=== PATIENT | female | born 1960 | race Caucasian/White ===

== ENCOUNTER 2022-05-15 09:34 | Outpatient (REF) | payer BC, SELFPAY ==
--- NOTE | 2022-05-15 08:45 | SKI_PTH ---
PATIENT: Keesha Blanca LOC: [facility] U#:[id number] AGE/SX: 62/F ROOM: RE05/15/[address]: KATHRYN Morris : 1960 BED: DIS: 05/15/2022 SPEC #: [id number] RECD: 05/15/22 13:39 STATUS: ADRIÁN REQ #: [id number] SUNITA: 05/15/22 08:[address]: Rolando Michael DEPT: Surgical Specimen RECD BY: Rae Boo ENTERED: 05/15/22 13:40 SP TYPE: FOUZIA CEJA DR: No Local Tissues: 1 - SKIN BIOPSY(SHAVE/PUNCH) 2 - SKIN BIOPSY(SHAVE/PUNCH) Procedures: SKIN LEVEL 4 Comments: [id number]
--- OUTSIDE RECORDS SUMMARY | 2022-05-15 09:36 | XMS_ITS ---
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 079992291 ALLERGIES Substance Reaction Event Type Date Status Morphine Unknown Drug Allergy Apr, Active Cortisone Unknown Drug Allergy Apr, Active ENCOUNTERS Encounter Location Date Diagnosis [facility] [address], [address] [place], [place] [id number] Apr, Non-healing skin lesion L98.9 ; Neoplasm of unspecified behavior of bone, soft tissue, and skin D49.2 ; Rhinorrhea J34.89 and Other complicated headache syndrome G44.59 [facility] [address] [place], [place] [id number] Feb, [facility] [address] [place], [place] [id number] Dec, Neoplasm of unspecified behavior of bone, soft tissue, and skin D49.2 and Dysphonia R49.0 [facility] [address] [place], [place] [id number] Jan, Low back pain, unspecified M54.50 IMMUNIZATIONS No Known Immunizations SOCIAL HISTORY Never Assessed REASON FOR REFERRAL FUNCTIONAL STATUS PLAN OF CARE Activity Details VITAL SIGNS Height 66 in 2022-05-15 Height 66 in 2022-01-02 Height 66 in 2021-02-05 Weight 135 lbs 2022-05-15 Weight 132 lbs 2022-01-02 Weight 130 lbs 2021-02-05 Temperature 97.3 degrees Fahrenheit Heart Rate 56 /min 2022-05-15 Heart Rate 82 /min 2022-01-02 Heart Rate 80 /min 2021-02-05 Oximetry 98 2022-05-15 Oximetry 100 2022-01-02 Oximetry 100 2021-02-05 Respiratory Rate 14 /min 2021-02-05 BMI 21.79 kg/m2 2022-05-15 BMI 21.30 kg/m2 2022-01-02 BMI 20.98 kg/m2 2021-02-05 Blood pressure systolic 124 mm Hg Blood pressure diastolic 70 mm Hg 2022-04 MEDICATIONS Medication Instructions Dosage Frequency Start Date End Date Duration Status metFORMIN HCl 500 MG Orally Once a day 1 tablet with a meal 24h 30 day(s) Not-Taki ng Ipratropium [place] 0.06 % Nasally Three times a day 2 sprays in each nostril 8h 4 day(s) Not-Taki ng Nasal [place] Triamcinolone Acetonide 0.1 % Externally Two times a Week 1 application Not-Taki ng PROCEDURES Procedure Date Ordered Result Body Site [facility] - X-RAY EXAM LUMBOSACRAL; 2 OR 3 VIEWS Feb 05 SHAVE FACE <.5 CM May 15, 2022 [facility] - URINALYSIS NONAUTO W/O SCOPE Feb 05, 2021 SHAVE FACE .6 - 1.0 CM May 15, 2022 DIAGNOSTIC FLEXIBLE LARYNGOSCOPY Jan 02, 2022 RESULTS Name Result Date Reference Range [facility] URINALYSIS DIP 2021-02-05 CLARITY CLEAR COLOR YELLOW NITRITES NEG REDUCING SUBSTANCES SPECIFIC GRAVITY 1.005 UROBILINOGEN NEG BILIRUBIN NEG BLOOD NEG GLUCOSE NEG KETONES NEG pH 5 PROTEIN NEG LEUKOCYTES NEG [facility] XR LUMBAR SPINE 2 VIEWS 2021-02-05 REASON FOR VISIT ENT Skin Lesion, Ear complaints, Cream not helping, ENT Ear Pain, ENT- skin lesion on ear, ENT- Skin lesion on ear, pfp New Consult, PFP Shave Excision, she thinks might be kidney problems? Insurance Providers Health Insurance Type Health Plan Insurance Address Health Plan Insurance Phone Health Plan Insurance Name Health Plan Coverage Dates Member ID Patient Relationship to Subscriber Patient Address Patient Phone Patient Name Patient Date of Subscriber ID Subscriber Name Subscriber Date of Group No BCBS OUT OF AREA [address] ATTN CLAIMS [facility] [id number] BCBS OUT OF AREA self Keesha Evangelist [id number] [id number]
== END 2022-05-15 09:35 | disposition home or self-care (01) ==
LOC: LBN 09:34
PROVIDERS: Visit Provider Physician Assistant
DX: C44.319 Basal cell carcinoma of skin of other parts of face (principal); L85.1 Acquired keratosis [keratoderma] palmaris et plantaris
CPT/HCPCS: 88305

== ENCOUNTER 2022-07-02 13:29 | Outpatient (REF) | payer BC, SELFPAY ==
[2022-07-02 14:57] LABS: Abs Immature Grans 0.01 10^3/uL (0.0-0.06); Absolute Basophil Count 0.03 10^3/uL (0.0-0.2); Absolute Eosinophil Count 0.04 10^3/uL (0.0-0.7); Absolute Monocyte Count 0.34 10^3/uL (0.1-0.8); Absolute Neutrophil Count 3.37 10^3/uL (1.2-6.7); Basophils % 0.6; Eosinophils % 0.8; HCT 39.2 % (36.0-46.0); HGB 13.1 g/dL (11.2-15.7); Immature Grans % 0.2; Lymphocytes % 25.5; MCH 27.4 pg (27.0-33.0); MCHC 33.4 % (32.0-36.0); MCV 82 fL (80-95); MPV 9.8 fL (8.0-11.0); Monocytes % 6.7; Neutrophils % 66.2; Platelet Count 199 10^3/uL (130-400); RBC 4.78 10^6/uL (3.93-5.22); RDW 12.6 % (11.7-14.6); WBC 5.09 10^3/uL (4.4-10.8)
[2022-07-02 15:07] LABS: ALT 27 U/L (14-59); AST 25 U/L (15-37); Alkaline Phosphatase 66 U/L (46-116); Anion Gap 5.7 mmol/L (3-11); BUN 16 mg/dL (7-18); CO2 31.3 mmol/L (21.0-32.0); CREATININE 0.7 mg/dL (0.55-1.02); Calcium 9.3 mg/dL (8.5-10.1); Calculated LDL 95 mg/dL (<100); Chloride 106 mmol/L (98-107); Cholesterol 194 mg/dL (<200); Estimated GFR 97.12 (mL/min/1.73m2); Glucose 92 mg/dL (74-106); HDL Cholesterol 89 mg/dL (40-60); Potassium 4.4 mmol/L (3.5-5.1); Sodium 143 mmol/L (136-145); TSH (W/Ref FT4) 0.95 uIU/mL (0.36-3.74); Total Protein 7.1 g/dL (6.4-8.2); Triglyceride 53 mg/dL (<150)
== END 2022-07-02 13:30 | disposition home or self-care (01) ==
LOC: NCHCN 13:29
PROVIDERS: Visit Provider Nurse Practitioner Family
DX: G47.00 Insomnia, unspecified (principal); Z13.220 Encounter for screening for lipoid disorders
CPT/HCPCS: 80053; 80061; 84443; 85025

== ENCOUNTER 2022-07-28 09:31 | Outpatient (CLI) | payer BC, SELFPAY | END 2022-07-28 09:32 | disposition home or self-care (01) | PROVIDERS: Visit Provider Nurse Practitioner Family | DX: I47.0 Re-entry ventricular arrhythmia (principal) | CPT/HCPCS: 93246 ==

== ENCOUNTER 2022-08-28 11:10 | Outpatient (CLI) | payer BC, SELFPAY ==
--- NOTE | 2022-08-28 12:12 | W.CARDEVENT ---
Date of service: 08/28/22 Time of Service: 12:12 Cardiac Event Recorder Referring Provider:: Val Bautista Indications:: Supraventricular tachycardia Cardiac Event Note: This is a 14-day cardiac event monitor ordered patient with ventricular tachycardia Rhythm throughout was sinus. Average heart rate was 76. Minimum was 43, maximum 141 There were rare ventricular ectopic beats There were occasional atrial premature beats A total of 11 self-limited atrial runs occurred. The longest of these was 7 beats in duration There was no atrial fibrillation, no high-grade AV block, no pauses greater than 3 seconds Patient's symptoms were reported which did not correlate with any dysrhythmia
== END 2022-08-28 11:11 | disposition home or self-care (01) ==
LOC: CARDOPNVT 11:10
PROVIDERS: PCP Nurse Practitioner Family; Visit Provider Internal Medicine Cardiovascular Disease
DX: I47.1 Supraventricular tachycardia (principal); I49.1 Atrial premature depolarization

== ENCOUNTER 2023-10-15 12:53 | Emergency (ER) | payer BC, SELFPAY ==
[2023-10-15] VITALS (49 sets, daily range): BP systolic 106–155; BP diastolic 60–101; PULSE 57–91; RESP 14–27; TEMP 36.4; O2SAT 97–99
--- NOTE | 2023-10-15 12:45 | RT.EKG_ITS ---
APPROVED REPORT Exam: Resting ECG Reason for Exam: AFIB, loss of vision Patient Location: E HR:76 bpm ECG Measurements Heart Rate 76 AXIS IN 140 P 8 QRSd 81 QRS 25 QT 373 T 12 QTc 417 Conclusion Sinus rhythm...normal P axis, V-rate 60- 99
--- OUTSIDE RECORDS SUMMARY | 2023-10-15 13:13 | XMS_ITS | Encounter Summary ---
[place] [address] Care Team Providers Care Structural Design Engineer Name Role Phone Juan Carlos Maldonado MD Primary Care Provider [phone] Reason for Referral * Consultation (Routine) - Closed Specialty Diagnoses / Procedures Referred By Contac t Referred To Contact Plastic Surgery Diagnoses S/P silicone breast implant Val Bautista APRN [address] [place] [address] [facility] [address] [place] [phone] Referral ID Status Reason Start Date Expiration Date V isits Requested Visits Authorized [id number] Closed Consult, Test & Treat PCP Updated and/or Approved 01/11/2023 01/11/2024 12 12 Encounter Details Date Type Department Care Team (Latest Contact Info) Description 01/11/2023 Transcribe Orders eDH Incoming Referrals [phone] Val Bautista APRN [address] [place] [address] S/P silicone breast implant Social History Tobacco Use Types Packs/Day Years Used Date Smoking Tobacco: Never Assessed Sex and Gender Information Value Date Recorded Sex Assigned at Not on file Gender Identity Not on file Sexual Orientation Not on file documented as of this encounter Plan of Treatment Scheduled Referrals Name Type Priority Associated Diagnoses Orde r Schedule Referral to Plastic Surgery Outpatient Referral Routine S/P silicone breast implant Ordered: 01/11/2023 documented as of this encounter Visit Diagnoses Diagnosis S/P silicone breast implant Breast replaced by other means documented in this encounter Care Teams Structural Design Engineer Relationship Specialty Start Date End Date Juan Carlos Maldonado MD [address] [place] [address] PCP - General Family Medicine 11/20/16 documented as of this encounter
--- OUTSIDE RECORDS SUMMARY | 2023-10-15 13:13 | XMS_ITS | Encounter Summary ---
Author Organization [facility] Address [address] [place] [address] Care Team Providers Care Dental Treatment Coordinator Name Role Phone Unknown, Provider MD Primary Care Provider [phone] None, Provider Primary Care Provider Unavailabl e Unknown, Provider MD Unavailable [phone] Encounter Details Date Type Department Care Team (Late st Contact Info) Description 08/21/2022 Lab Requisition [facility] [place] [address] [place] [address] Prashant Aldridge, [address] [place], [place] [address] Basal cell carcinoma of skin, unspecified Social History Tobacco Use Types Packs/Day Years Used Date Smoking Tobacco: Never Assessed Sex and Gender Information Value Date Recorded Sex Assigned at Not on file Gender Identity Not on file Sexual Orientation Not on file documented as of this encounter Plan of Treatment Not on file documented as of this encounter Procedures Procedure Name Priority Date/Time Associated Diagnosis Comments SURGICAL PATHOLOGY Today 08/20/2022 9: 20 EDT Basal cell carcinoma of skin, unspecified documented in this encounter Results * SURGICAL PATHOLOGY (08/20/2022 9:20 EDT) Note to Patient The following pathology results have been interpreted by your pathologist and may be available to you before your health provider has had the opportunity to review them. Please allow time for your provider to receive these results and explore management options, if applicable. 08/25/2022 15:18 EDT [facility] Final Diagnosis A. SKIN OF CHEEK, LEFT, EXCISION FOR FROZEN SECTION: - Residual basal cell carcinoma, nodular type; peripheral and deep margins negative. See comment. - Epidermal reparative change and dermal scar, consistent with prior biopsy site. - Background dermal solar elastosis. 08/25/2022 15:18 [facility] Diagnosis Comment Correlation is made with the prior biopsy ([id number]). 08/25/2022 15:18 [facility] Attestation By the signature below, the attending physician certifies that they have 1) personally conducted a gross and/or microscopic examination of the described specimen(s), and/or personally interpreted the results of laboratory testing of the described specimen(s), and 2) personally rendered or confirmed the above diagnosis. 08/25/2022 15:18 [facility] at 1518 Intraoperative Consultation A. SKIN OF CHEEK, LEFT, FROZEN SECTION: -FSA1: 12 o'clock and 6 o'clock tips en face (levels 1+6): Tips uninvolved by tumor. -FSA2: Levels 2, 3: Margins uninvolved by tumor. -FSA3: Levels 4, 5: Margins uninvolved by tumor. Frozen section diagnosis communicated to Rolando Michael on 08/20/2022 at 9:[address] Ru Jacob 08/20/22 (Frozen section performed and evaluated at [facility]) 08/25/2022 15:18 [facility] Clinical History left cheek BCC 07/29 15:18 [facility] Gross Description A. Received fresh labeled Keesha Blanca and ? Left cheek frozen section? is an elliptical excision of bonner skin with the following attached orienting sutures: white = 3 o'clock, blue = 6 o'clock, black = 9 o'clock; measuring 1.7 cm 12-6 o'clock x 0.7 cm 9-3 o'clock and excised to a depth of 0.4 cm. The 12-3-6 o'clock margin is inked blue, the 6-9-12 o'clock margin green. The specimen is serially sectioned from 12 o'clock to 6 o'clock and submitted as FSA1 through FSA3 for frozen section with the interpretation as rendered above. BLOCK PALOMINO: A1: 12 o'clock tip, en face, portion of FSA1 control. A2-A5: Consecutive central sections, FSA2 and FSA3 controls. A6: 6 o'clock tip, en face, portion of FSA1 control. 08/25/2022 15:18 EDT [facility] Performing Lab [facility] 08/25/2022 15:18 EDT [facility] Scanned Images 08/25/2022 15:18 EDT [facility] Tissue SPECIMEN FROM SKIN / Unknown 08/20/2022 9:20 EDT 08/21/2022 9:33 EDT Prashant Aldridge DO PATHOLOGY ORDER WANDA [facility] [address] [place] [address] documented in this encounter Visit Diagnoses Diagnosis Basal cell carcinoma of skin, unspecified documented in this encounter Care Teams Dental Treatment Coordinator Relationship Specialty Start Date End Date Unknown, ProviderMD PCP - General 04/29/22 11/23/22 None, Provider PCP - General 11/24/22 Unknown, ProviderMD 11/24/22 documented as of this encounter
--- OUTSIDE RECORDS SUMMARY | 2023-10-15 13:13 | XMS_ITS | Clinical Summary ---
Author Organization [facility] [place] [address] Care Team Providers Care Enrollment Clerk Name Role Phone Juan Carlos Maldonado MD Primary Care Provider Allergies Active Allergy Reactions Criticality Noted Date Comments Erythromycin Base Low CIS - Nausea/Vomiting Medications Medication Sig Dispensed Refills Start Date End Date Status ibuprofen (ADVIL) 200 mg tablet 01/08/2009 Active Social History Tobacco Use Types Packs/Day Years Used Date Smoking Tobacco: Never Assessed Sex and Gender Information Value Date Recorded Sex Assigned at Not on file Gender Identity Not on file Sexual Orientation Not on file Plan of Treatment Health Maintenance Due Date Last Done Comments CT Colonography 1959 Colonoscopy 1960 Colorectal Cancer Screening 1960 FIT DNA 1959 FIT 1960 Sigmoidoscopy (10 year) with FIT yearly 1960 Sigmoidoscopy 1960 HIV screen 1977 Hepatitis C Screening 1977 Tdap adult 1978 Tetanus vaccine 1978 HPV test 1989 PAP Smear 1989 Breast Cancer Share Decision Needed 1999 Breast Cancer screening 1999 Zoster vaccine (1 of 2) 2009 Advance Directive 2014 Covid-19 Vaccine (2022- season) 2022 Influenza (Flu) vaccine (1 o f 1 - Influenza standard series) 11/28/2023 Care Teams Enrollment Clerk Relationship Specialty Start Date End Date Juan Carlos Maldonado MD [address] [place] [address] PCP - General Family Medicine 11/20/16
--- OUTSIDE RECORDS SUMMARY | 2023-10-15 13:13 | XMS_ITS | Encounter Summary ---
Author Organization [facility] Address [address] [facility] [place] [address] Care Team Providers Care Student Truck Driver Name Role Phone Juan Carlos Maldonado MD Primary Care Provider Encounter Details Date Type Department Care Team (Late st Contact Info) Description 02/05/2010 Interpretation Only Radiology 1 [facility] TONJA Sam [phone] Unknown None Social History Tobacco Use Types Packs/Day Years Used Date Smoking Tobacco: Never Assessed Sex and Gender Information Value Date Recorded Sex Assigned at Not on file Gender Identity Not on file Sexual Orientation Not on file documented as of this encounter Plan of Treatment Not on file documented as of this encounter Procedures Procedure Name Priority Date/Time Associated Diagnosis Comments XR HAND MIN 3 VIEWS RIGHT Routine 02/05/2010 3:06 PM EST documented in this encounter Results * XR Hand Min 3 views Right (Generic) (02/05/2010 3:06 PM EST) Anatomical Region Laterality Modality Hand Right Radiographic Sheryl ging 02/05/2010 3:06 PM EST Narrative 02/05/2010 3:06 PM EST APD Historical Result Principal Senior Php Software Developer: ??VERO ??ARUNA RIGHT HAND - THREE VIEWS: Three views of the right hand are obtained for pain post trauma. No prior study for comparison. There is alteration in the carpus, with apparent resection of the trapezium. ??Alternatively, a portion of the trapezium may be fused to the base of the 1st metacarpal. ??There is degenerative disease in the lateral aspect of the carpus. ??There is degenerative disease also noted involving the proximal interphalangeal joints and the 3rd metacarpophalangeal joint, with marginal osteophytic spurring and joint space narrowing. ??There is no suggestion of acute bony trauma or bone destructive lesion. ??Lesser degeneration disease is seen elsewhere. There is no suggestion of acute bony trauma or bone destructive lesion. IMPRESSION: (1) Postoperative changes involving the lateral aspect of the carpus. ??(2) Degenerative change of the remainder of the hand. Vero Valdovinos MD KG/ma [id number] CC: Procedure Note Unknown - 09/26/2018 APD Historical Result Principal Senior Php Software Developer: VERO VALDOVINOS RIGHT HAND - THREE VIEWS: Three views of the right hand are obtained for pain post trauma. No prior study for comparison. There is alteration in the carpus, with apparent resection of thetrapezium. Alternatively, a portion of the trapezium may be fused to the base of the 1st metacarpal.There is degenerative disease in the lateral aspect of the carpus. There is degenerative disease alsonoted involving the proximal interphalangeal joints and the 3rd metacarpophalangeal joint,with marginal osteophytic spurring and joint space narrowing. There is no suggestion of acute bony trauma orbone destructive lesion. Lesser degeneration disease is seen elsewhere. There is nosuggestion of acute bony trauma or bone destructive lesion. IMPRESSION: (1) Postoperative changes involving the lateral aspect of thecarpus. (2) Degenerative change of the remainder of the hand. Vero Valdovinos MD KG/ma [id number] CC: Unknown IMG DX ORDERABLES documented in this encounter Visit Diagnoses Not on filedocumented in this encounter Care Teams Student Truck Driver Relationship Specialty Start Date End Date Juan Carlos Maldonado MD [address] [place] [id number] PCP - General Family Medicine 11/20/16 documented as of this encounter
--- OUTSIDE RECORDS SUMMARY | 2023-10-15 13:13 | XMS_ITS | Referral Summary ---
Author Organization [facility] Address [address] [place] [address] Care Team Providers Care Assistant Professor Of Criminal Justice Name Role Phone None, Provider Primary Care Provider Unavailabl e Unknown, Provider Unavailable [phone] Social History Tobacco Use Types Packs/Day Years Used Date Smoking Tobacco: Never Assessed Sex and Gender Information Value Date Recorded Sex Assigned at Not on file Gender Identity Not on file Sexual Orientation Not on file Plan of Treatment Not on file Insurance Payer Benefit Plan / Group Subscriber ID Effective Dates Phone Address Type [facility] [id number] 2020-Present [address] [place] [address] Other GL Care Teams Assistant Professor Of Criminal Justice Relationship Specialty Start Date End Date None, Provider PCP - General 11/24/22 Unknown, Provider, 11/24/22
--- OUTSIDE RECORDS SUMMARY | 2023-10-15 13:13 | XMS_ITS | Encounter Summary ---
Author Organization [facility] Address [address] [place] [address] Care Team Providers Care Community Support Associate Name Role Phone Unknown, Provider MD Primary Care Provider None, Provider Primary Care Provider Unavailabl e Unknown, Provider MD Unavailable [phone] Encounter Details Date Type Department Care Team (Late st Contact Info) Description 05/15/2022 Lab Requisition [facility] Medicine - [address] [address] Rolando Michael, [address] [phone] Neoplasm of unspecified behavior of bone, soft tissue, and skin Social History Tobacco Use Types Packs/Day Years Used Date Smoking Tobacco: Never Assessed Sex and Gender Information Value Date Recorded Sex Assigned at Not on file Gender Identity Not on file Sexual Orientation Not on file documented as of this encounter Plan of Treatment Not on file documented as of this encounter Procedures Procedure Name Priority Date/Time Associated Diagnosis Comments SURGICAL PATHOLOGY Today 05/15/2022 8: 45 EST Neoplasm of unspecified behavior of bone, soft tissue, and skin documented in this encounter Results * SURGICAL PATHOLOGY (05/15/2022 8:45 EST) Note to Patient The following pathology results have been interpreted by your pathologist and may be available to you before your health provider has had the opportunity to review them. Please allow time for your provider to receive these results and explore management options, if applicable. 05/19/2022 13:22 EST [facility] Final Diagnosis A. SKIN OF HELIX, LEFT MID, SHAVE BIOPSY: - Reactive epidermal hyperplasia with hyperkeratosis and parakeratosis. See comment. B. SKIN OF CHEEK, LEFT, SHAVE BIOPSY: - Basal cell carcinoma, nodular type (pigmented). - Basal cell carcinoma present at deep tissue edge. 05/19/2022 13:22 [facility] Diagnosis Comment Numerous sections of the biopsy from ? left helix? (A) were reviewed. 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 There is no evidence of malignancy on either the original or additional deeper sections. 05/19/2022 13:22 [facility] Attestation By the signature below, the attending physician certifies that they have 1) personally conducted a gross and/or microscopic examination of the described specimen(s), and/or personally interpreted the results of laboratory testing of the described specimen(s), and 2) personally rendered or confirmed the above diagnosis. 05/19/2022 13:22 [facility] at 1322 Microscopic Description A. Sections consist of a shave biopsy of skin that transects the epidermis and superficial dermis. The epidermis is moderately acanthotic with overlying compact hyperkeratosis and focal parakeratosis. There is mild dilatation follicular ostia. The dermis has mild elastosis and vascular ectasia. Multiple deeper sections have similar features. B. There are buds of atypical basal cells emanating from the epidermis and forming islands within the dermis. The basal cells have dark nuclei and scant cytoplasm. The nuclei at the periphery of the buds and islands are arranged in a palisaded fashion. Some the islands and buds are associated with melanin pigment within individual melanocytes and melanophages. The islands are from the adjacent fibromyxoid stroma by clefts. 05/19/2022 13:22 [facility] Clinical History A. Bleeding skin neoplasm; B. Ulcerated skin lesion; clinical diagnosis code: D49.2 05/19/2022 13:22 [facility] Gross Description A. Received in formalin labelled with proper patient identification (initials W, L) and L helix is an irregular pale-bonner skin shave, 0.6 x 0.5 x 0.1 cm. The margin is inked. Bisected and entirely submitted in A1. B. Received in formalin labelled with proper patient identification (initials W, L) and L cheek is an irregular mottled sanderson-brown skin shave, 0.6 x 0.5 x 0.1 cm. The margin is inked. Bisected and entirely submitted in B1. KATHRYN LASSITER(ASCP) 05/18/2022 7:25 05/19/2022 13:22 EST [facility] Performing Lab [facility] 05/19/2022 13:22 EST [facility] Scanned Images 05/19/2022 13:22 EST [facility] Tissue TISSUE SPECIMEN FROM SKIN / Unknown 05/15/2022 8:45 EST 05/15/2022 21:15 EST Tissue specimen (specimen) SPECIMEN FROM SKIN / Unknown 05/15/2022 8:45 EST 05/15/2022 21:15 EST Rolando PERALTA PATHOLOGY ORDERABL ES [facility] [address] [place] [address] documented in this encounter Visit Diagnoses Diagnosis Neoplasm of unspecified behavior of bone, soft tissue, and skin documented in this encounter Care Teams Community Support Associate Relationship Specialty Start Date End Date Unknown, ProviderMD PCP - General 04/29/22 11/23/22 None, Provider PCP - General 11/24/22 Unknown, ProviderMD 11/24/22 documented as of this encounter
--- OUTSIDE RECORDS SUMMARY | 2023-10-15 13:13 | XMS_ITS | Clinical Summary ---
Author Organization [facility] Address [address] [place] [address] Care Team Providers Care Efficiency Clerk Name Role Phone None, Provider Primary Care Provider Unavailabl e Unknown, Provider Unavailable [phone] Social History Tobacco Use Types Packs/Day Years Used Date Smoking Tobacco: Never Assessed Sex and Gender Information Value Date Recorded Sex Assigned at Not on file Gender Identity Not on file Sexual Orientation Not on file Plan of Treatment Health Maintenance Due Date Last Done Comments Hepatitis C Screen 1960 RSV Immunization ( o r 60+ Years) (1 - 1-dose 60+ series) 2019 COVID-19 Vaccine ( season) 2022 Insurance Payer Benefit Plan / Group Subscriber ID Effective Dates Phone Address Type [place] [id number] 2020-Present [address] [place] [address] Other GL Care Teams Efficiency Clerk Relationship Specialty Start Date End Date None, Provider PCP - General 11/24/22 Unknown, Provider, 11/24/22
--- NOTE | 2023-10-15 13:20 | DI.CT_ITS ---
Exam(s) CT HEAD WO EXAM: CT HEAD WO CLINICAL HISTORY: acute visual loss. TECHNIQUE: Imaging Protocol: Axial computed tomography images with coronal and sagittal reformatted images were created and reviewed COMPARISON: No exams were available for comparison FINDINGS: There are no skull fractures. There is no fluid in the visualized paranasal sinuses. There is no evidence of intracranial hemorrhage, mass effect, or shift of midline structures. There are no extra-axial fluid collections. The ventricles are not enlarged or shifted and there is no blo od within the ventricular system nor within the basal cisterns. IMPRESSION: No acute intracranial findings on this noninfused CT scan of the brain. If clinically indicated follow-up MRI with diffusion imaging can be performed. Called by myself to ER 10/15/2023 1:27 p.m. RADIATION DOSE DELIVERED: Total DLP DATA REPOSITORY: All CT scans at this facility are submitted to the National Radiology Data Registry (NRDR) Dose Index Registry (DIR) with the [employer] (ACR). RADIATION OPTIMIZATION: All CT scans at this facility use at least one of these dose optimization te chniques: automated exposure control; mA and/or kV adjustment per patient size (includes targeted exa ms where dose is matched to clinical indication); or iterative reconstruction.
[2023-10-15 13:56] LABS: Abs Immature Grans 0.03 10^3/uL (0.0-0.06); Absolute Basophil Count 0.04 10^3/uL (0.0-0.2); Absolute Eosinophil Count 0.09 10^3/uL (0.0-0.7); Absolute Monocyte Count 0.61 10^3/uL (0.1-0.8); Absolute Neutrophil Count 4.87 10^3/uL (1.2-6.7); Basophils % 0.5 %; Eosinophils % 1.1 %; HCT 44.7 % (36.0-46.0); Immature Grans % 0.4 %; MCH 27.7 pg (27.0-33.0); MCHC 33.6 % (32.0-36.0); MCV 83 fL (80-95); MPV 9.3 fL (8.0-11.0); Monocytes % 7.7 %; Neutrophils % 61.3 %; Platelet Count 227 10^3/uL (130-400); RBC 5.41 10^6/uL (3.93-5.22); RDW 13.3 % (11.7-14.6); RDW-SD 39.6 fL; WBC 7.94 10^3/uL (4.4-10.8)
[2023-10-15 14:22] LABS: ALT 29 U/L (14-59); AST 25 U/L (15-37); Albumin 4.6 g/dL (3.4-5.0); Alkaline Phosphatase 78 U/L (46-116); Anion Gap 8.1 mmol/L (3-11); BUN 13 mg/dL (7-18); CO2 31.9 mmol/L (21.0-32.0); CREATININE 0.9 mg/dL (0.55-1.02); Calcium 9.7 mg/dL (8.5-10.1); Chloride 101 mmol/L (98-107); Estimated GFR 71.39 (mL/min/1.73m2); Glucose 97 mg/dL (74-106); Magnesium 2.1 mg/dL (1.8-2.4); Potassium 3.7 mmol/L (3.5-5.1); Sodium 141 mmol/L (136-145); Total Protein 8.4 g/dL (6.4-8.2); Troponin I < 50 ng/L (< or =60)
--- NOTE | 2023-10-15 15:20 | ED.GENADUL_ITS ---
Discharge Plan Discharge Details Chief Complaint: Dizzy/Sync Primary Care Provider: Val Bautista ED Provider: Jorden Stewart Home Meds and New Rx's Prescriptions: No Action ipratropium bromide 42 mcg (0.06 %) spray,non-aerosol 2 spray intranasal TID PRN Rx Instructions: administer into each nostril [facility] General Mode of arrival: ambulatory . Date/Time Provider Initiated Documentation: 10/15/23 13:04 . Limitations to Documentation: no limitations . Information obtained by: patient . HPI Narrative: 63-year-old female with history of A-fib status post ablation, here today with chief complaint of loss of vision. Patient notes she was brushing her teeth this morning and suddenly felt shaky and then developed sudden onset of left lower visual field cut in her left eye. This occurred at 7 AM. Symptoms lasted about 3 minutes. Since the episode she has felt generally fatigued today with low energy. No associated eye pain. No headache. Related Data Home Medications ?Medication ?Instructions ?Recorded ?Confirmed ipratropium bromide 42 mcg (0.06 2 spray intranasal TID PRN 04/07/23 10/15/23 %) nasal spray Allergies Allergy/AdvReac Type Severity Reaction Status Date / Time cortisone Allergy suicidal Verified 05/14/23 14:52 ideation morphine Allergy Hives Verified 05/14/23 14:52 General Stated Complaint: Dizzy/Sync JANIS: 3 Review of Systems Constitutional Constitutional: Denies fever(s) Eyes Eyes: Reports as per HPI Neurologic Neurologic: Reports as per HPI Exam Const General: cooperative and no acute distress HENMT Mouth: moist mucous membranes Eyes Visual Abreu: normal visual abreu by confrontation Alignment and Position: alignment normal Conjunctivae: normal conjunctivae Sclera: normal sclerae Pupils: PERRL EOM: EOM intact bilaterally Resp Auscultation: clear to auscultation bilaterally, no rales, no rhonchi and no wheezes Cardio Rate: regular rate and not tachycardic Rhythm: regular rhythm Heart Sounds: no murmurs GI Palpation: soft, not firm, no guarding, no masses, not rigid and nontender Skin General skin exam: no rashes or lesions noted Neuro General: patient alert, patient awake, patient oriented x3 and tone normal Cranial Nerves: CN's II-XI intact bilaterally Cognition: normal cognition Speech: speech normal Gait: normal gait Motor: strength 5/5 throughout Sensory Exam: no sensory deficits noted Other: Horizontal nystagmus bilateral Extrem General: no edema Psych Appearance: grossly normal Mental Status: mental status grossly normal Course Vital Signs Vital signs: Vital Signs Temperature 36.4 C L 10/15/23 12:56 Pulse 85 10/15/23 12:56 Respiratory Rate 24 10/15/23 12:56 Blood Pressure 155/83 H 10/15/23 12:56 Pulse Oximetry 98 10/15/23 12:56 Temperature 36.4 C L 10/15/23 12:56 Pulse 57 L 10/15/23 14:31 Pulse 68 10/15/23 14:40 Respiratory Rate 18 10/15/23 14:40 Respiratory Effort Non-Labored 10/15/23 14:18 Respiratory Depth Normal 10/15/23 14:18 Respiratory Pattern Normal 10/15/23 14:18 Blood Pressure 106/74 10/15/23 14:31 Blood Pressure Mean 84 10/15/23 14:31 Pulse Oximetry 99 10/15/23 14:40 Oxygen Delivery Method Room Air 10/15/23 12:56 Oxygen Flow Rate 0 10/15/23 12:56 Lab/Test Results Lab/Test Results: Laboratory Tests Range/Units 10/15/23 13:06 WBC (4.4-10.8) 10^3/uL 7.94 RBC (3.93-5.22) 10^6/uL 5.41 H Hgb (11.2-15.7) g/dL 15.0 Hct (36.0-46.0) % 44.7 MCV (80-95) fL 83 MCH (27.0-33.0) pg 27.7 MCHC (32.0-36.0) % 33.6 RDW (11.7-14.6) % 13.3 Plt Count (130-400) 10^3/uL 227 MPV (8.0-11.0) fL 9.3 Immature Gran % % 0.4 Neutrophils % % 61.3 Lymphocytes % % 29.0 Monocytes % % 7.7 Eosinophils % % 1.1 Basophils % % 0.5 Nucleated RBC % (0.0-0.3) % 0.0 Absolute Neutrophils (1.2-6.7) 10^3/uL 4.87 Absolute Lymphocytes (1.2-3.4) 10^3/uL 2.30 Absolute Monocytes (0.1-0.8) 10^3/uL 0.61 Absolute Eosinophils (0.0-0.7) 10^3/uL 0.09 Absolute Basophils (0.0-0.2) 10^3/uL 0.04 Sodium (136-145) mmol/L 141 Potassium (3.5-5.1) mmol/L 3.7 Chloride (98-107) mmol/L 101 Carbon Dioxide (21.0-32.0) mmol/L 31.9 Anion Gap (3-11) mmol/L 8.1 BUN (7-18) mg/dL 13 Creatinine (0.55-1.02) mg/dL 0.9 Est GFR (CKD-EPI 2020) (mL/min/1.73m2) 71.39 Glucose (74-106) mg/dL 97 Calcium (8.5-10.1) mg/dL 9.7 Magnesium (1.8-2.4) mg/dL 2.1 Total Bilirubin (0.2-1.0) mg/dL 1.40 H AST (15-37) U/L 25 ALT (14-59) U/L 29 Alkaline Phosphatase (46-116) U/L 78 Troponin I (< or =60) ng/L < 50 Total Protein (6.4-8.2) g/dL 8.4 H Albumin (3.4-5.0) g/dL 4.6 Medical Decision Making 63-year-old female with history of A-fib status post ablation presents with transient monocular partial visual field loss that came on suddenly this morning around 7 AM and lasted approximately 3 minutes, now with persistent fatigue. Patient is neurologically intact. Hemodynamically stable. EKG was reviewed and interpreted by me: Please report, sinus rhythm, multiple PVCs. Consider embolic ischemic disease vs ocular etiology. Retina, optic disc and vessels normal on ophthalmologic exam. No inflammatory changes of the eye. CT of the head was interpreted by radiology: No acute intracranial findings on this noninfused CT scan of the brain. If clinically indicated follow-up MRI with diffusion imaging can be performed. Given concern for TIA, will consult teleneurology. 1610 --I spoke with the teleneurologist on-call who evaluated the patient. He feels likely retinal artery occlusion and recommends starting Eliquis 5 mg twice daily. He recommends obtaining CTA of the head and neck. If CTA is negative, he recommends discharge with outpatient follow-up with ophthalmology and neurology and outpatient MRI. Consult note not available at this time. Quality:SDOH Health Related Social Needs: No Data to Display [facility] Medical History Tear of medial meniscus of left knee Anxiety Pulmonary nodule Vasomotor rhinitis Sinus congestion Insomnia Rectal bleeding Malignant neoplasm of breast Dermatitis Social History Smoking/Tobacco Use Status: Never Smoking risk assessment performed?: Yes Alcohol Intake: current Alcohol Intake frequency: a few times a month Drug use: Never Substance use type: does not use Housing: house Do you feel safe at home: Yes Do you feel safe in your relationship?: Yes
--- NOTE | 2023-10-15 16:00 | DI.CT_ITS ---
Exam(s) CT BRAIN NECK CTA EXAM: CT BRAIN NECK CTA CLINICAL HISTORY: monocular visual loss now resolved. TECHNIQUE: Imaging Protocol: Axial CT angiography was performed with multi-slice acquisition and mu lti-planar and/or 3D reconstructions. CONTRAST MATERIAL: Intravenous: Omnipaque 350 Contrast volume:structured data in ml COMPARISON: CT CT HEAD WO from 10/15/2023 FINDINGS: CTA Neck W: Aortic arch anatomy: There is an aberrant right subclavian artery noted. This comes off as the last vessel of the aortic arch and crosses the midline to the right side between the posterior wall of the esophagus and the anterior aspect of the thoracic vertebra at this level.. No significant stenosis in this vessel. No evidence of aortic dissection. No intimal flap evident. Anterior circulation: Both common carotid arteries ascend with normal luminal diameters. At the level the carotid bulbs and proximal internal carotid arteries there is minimal plaque without hemodynamically significant stenosis evident on either side Both internal carotid arteries above this level are patent in the upper neck and not tortuous. Posterior circulation: Both vertebral arteries originate in conventional fashion off of the subclavian arteries and there is no obvious stenosis at the origin of the vertebral arteries. Both vertebral arteries exhibit normal luminal diameters within the foramen transversarium. Both vertebral arteries contribute to the formation of the basilar artery at the skull base. CTA Brain W: Anterior circulation: Both internal carotid arteries are patent in the skull base-carotid canals as well as within the cave rnous sinuses. Both ophthalmic arteries appear patent and originate in conventional fashion off of t he intra cavernous internal carotid arteries. The supraclinoid aspects of the ICAs are patent. Both A1 segments are patent as are the anterior cer ebral arteries and there is no evidence of aneurysm at the level of the anterior communicating artery . Both middle cerebral arteries are patent with no evidence of significant stenosis nor intraluminal th rombus. There also no aneurysms of these vessels. Posterior circulation: The basilar artery ascends in the midline. Distally it gives off patent bilateral superior cerebella r arteries. Above this level the basilar artery terminates as patent left posterior cerebral artery. The right p osterior cerebral artery is predominantly fed by posterior communicating artery on the right side of the piimjj-nj-Peavrh/persistent circulation. There is no evidence of aneurysm at the tip of the basilar artery nor elsewhere in the [id number]-Mjfc is. CT BRAIN: There is no evidence of intracranial hemorrhage, mass effect, or shift of midline structures. There are no extra-axial fluid collections. Ventricles are not enlarged or shifted. There are no ring enh ancing lesions in the brain. However, there is an abnormal enhancing lesion in the anterior aspect o f the inferior right cerebellar hemisphere, this measuring 1.5 by 1.0 by 1.7 cm. This appears to be just anterior to the right cerebellar tonsil. Consistent with significant enhancing lesion at this l evel. IMPRESSION: 1. Patent carotid arteries in the neck. Minimal plaque. No hemodynamically significant stenosis. 2. Patent vertebral arteries. 3. Patent intracranial arteries. 4. There is a 15 x 10 x 17 mm abnormal enhancing lesion in the right cerebellum medullary angle regio n just anterior to the right cerebellar tonsil. Probably extra-axial. Suspect that this is a probab le meningioma. Recommend follow-up contrast infused MRI. 5. Incidentally noted is an aberrant right subclavian artery. RADIATION DOSE DELIVERED: Total DLP DATA REPOSITORY: All CT scans at this facility are submitted to the National Radiology Data Registry (NRDR) Dose Index Registry (DIR) with the [employer] (ACR). RADIATION OPTIMIZATION: All CT scans at this facility use at least one of these dose optimization te chniques: automated exposure control; mA and/or kV adjustment per patient size (includes targeted exa ms where dose is matched to clinical indication); or iterative reconstruction.
[2023-10-15] MEDS: Apixaban 5 MG TAB PO ×2 (16:28→20:42)
[2023-10-15 16:37] LABS: ESR 2 mm/hr (0-30)
[2023-10-15 16:51] LABS: C-Reactive Protein < 0.50 mg/dL (<or=0.5)
[2023-10-15 16:58] LABS: Troponin I < 50 ng/L (< or =60)
[2023-10-15] MEDS: Normal Saline - Diluent 50 ML VIAL IJ (18:55)
[2023-10-15] MEDS: Omnipaque 350 MG/ML 100 ML BTL IJ (18:56)
--- NOTE | 2023-10-15 20:00 | DI.VRAD_ITS ---
PROCEDURE INFORMATION: Exam: CTA Head Without And With Contrast, Arteriography Exam date and time: 10/15/2023 6:51 PM Age: 63 years old Clinical indication: Other: Monocular visual loss now resolved, attention to left ica and left opthal arteries TECHNIQUE: Imaging protocol: Computed tomographic angiography of the head without and with contrast. Exam focused on the arteries. 3D rendering (Not supervised by radiologist): MIP and/or 3D reconstructed images were created by the technologist. Total images: 2205 Contrast material: 350; Contrast volume: 85 ml; Contrast route: INTRAVENOUS (IV); COMPARISON: CT HEAD WO 10/15/2023 1:13 PM FINDINGS: ANTERIOR CIRCULATION: Right internal carotid artery: No significant stenosis or occlusion. No aneurysm. Right middle cerebral artery: No significant stenosis or occlusion. No aneurysm. Right anterior cerebral artery: No significant stenosis or occlusion. No aneurysm. Left internal carotid artery: No significant stenosis or occlusion. No aneurysm. Left middle cerebral artery: No significant stenosis or occlusion. No aneurysm. Left anterior cerebral artery: No significant stenosis or occlusion. No aneurysm. POSTERIOR CIRCULATION: Right vertebral artery: No significant stenosis or occlusion. No aneurysm. Left vertebral artery: No significant stenosis or occlusion. No aneurysm. Basilar artery: No significant stenosis or occlusion. No aneurysm. Right posterior cerebral artery: No significant stenosis or occlusion. No aneurysm. Left posterior cerebral artery: No significant stenosis or occlusion. No aneurysm. Other arteries: Bilateral ophthalmic artery flow without stenosis or occlusion. Veins: No dural venous sinus thrombosis. HEAD: Brain: 1.5 x 1.3 cm soft tissue density homogeneously enhancing (although less than blood pool) extra-axial mass right cerebellar medullary angle with a punctate calcification. Cerebral ventricles: No significant hydrocephalus. Bones: Unremarkable. Paranasal sinuses: No significant mucosal thickening or fluid levels. Mastoid air cells: No mastoid effusion. Soft tissues: Unremarkable. IMPRESSION: 1. No large vessel occlusion. 2. No ophthalmic artery occlusion. 3. Possible meningioma right cerebellar medullary angle. Consider MRI correlation. PROCEDURE INFORMATION: Exam: CTA Neck Without And With Contrast Exam date and time: 10/15/2023 6:51 PM Age: 63 years old Clinical indication: Other: Monocular visual loss now resolved, attention to left ica and left opthal arteries TECHNIQUE: Imaging protocol: Computed tomographic angiography of the neck without and with contrast. Exam focused on the cervical segments of the vasculature. 3D rendering (Not supervised by radiologist): MIP and/or 3D reconstructed images were created by the technologist. Contrast material: 350; Contrast volume: 85 ml; Contrast route: INTRAVENOUS (IV); COMPARISON: CT HEAD WO 10/15/2023 1:13 PM FINDINGS: Right common carotid artery: Minimal stenosis right carotid bulb. Right internal carotid artery: No significant stenosis or occlusion. Right external carotid artery: No significant stenosis or occlusion. Left common carotid artery: No significant stenosis or occlusion. Left internal carotid artery: Minimal stenosis proximal left ICA. Left external carotid artery: No significant stenosis or occlusion. Right vertebral artery: No significant stenosis or occlusion. Left vertebral artery: No significant stenosis or occlusion. Right subclavian artery: Aberrant right subclavian artery. Soft tissues: Unremarkable. Bones/joints: Prior internal fixation left clavicle fracture. Severe cervical degenerative disc disease and spondylosis with secondary stenosis. IMPRESSION: Minimal carotid stenosis. REFERENCES: NASCET CRITERIA. The degree of stenosis in the cervical segment of the internal carotid artery is based on NASCET criteria. Normal is no stenosis. Mild is less than 50% stenosis. Moderate is 50-69% stenosis. Severe is 70% to 99% stenosis. Total occlusion is no detectable patent lumen. Dictated and Authenticated by: Servando Garcia MD. Ordering:ANJU Leonardo MD
--- NOTE | 2023-10-15 20:07 | ED.PROG_ITS ---
Date of service: 10/15/23 Time of Service: 20:07 Medical Decision Making Patient signed out to me pending CTA and if that is negative for significant pathology plan for discharge on Eliquis and follow-up with her PCP. Her CTA shows no significant vascular abnormality they question a small meningioma. Patient denies any chronic headaches or other symptoms to suggest symptoms from this. She is stable and has no symptoms now alert and oriented x 4 speaking clearly. She is comfortable for discharge and I feel this is reasonable, she will follow-up with her PCP and return precautions given Imaging Data Radiologic Study: Attestation: I personally reviewed and interpreted this imaging study as follows: Imaging: CT Scan Radiologist's impression: 1. No large vessel occlusion. 2. No ophthalmic artery occlusion. 3. Possible meningioma right cerebellar medullary angle. Consider MRI correlation. Minimal carotid stenosis Quality:SDOH Health Related Social Needs: No Data to Display Sign Out Sign Out Data: Sign Out Comment: 63-year-old female here with partial, transient, painless monocular visual loss that occurred this morning with continued fatigue. Radha ent has been seen by teleneurology. Plan at signout is to followup CTA brain and neck and reassess patient for disposition. If CTA negative and patient remains stable, neurology recommends patient to be discharged to follow-up with ophthalmology and neurology and to be started on Eliquis. Initial dose of Eliquis was already given today. Last updated by Jorden Stewart MD at 10/15/23 16:59 Discharge Plan Disposition Patient Disposition: Home Condition: Stable Discharge Details Clinical Impression: Alteration in vision Primary Care Provider: Val Bautista ED Provider: Kamlesh Winn [place] Meds and New Rx's Prescriptions: New Eliquis 5 mg tablet 5 mg PO BID Qty: 60 0RF Continued ipratropium bromide 42 mcg (0.06 %) spray,non-aerosol 2 spray intranasal TID PRN Rx Instructions: administer into each nostril Discharge Instructions Additional Instructions: Your CTA did not show any concerning vascular abnormality. You may have a small meningioma which is a benign lesion in the brain. Take the Eliquis as prescribed, your primary care provider will likely want to extend the prescription beyond 1 month. Discuss this further when you follow-up with them. If you feel more ill or have new symptoms such as weakness, changes in speech or return of change in vision return to the emergency department for reevaluation
--- NOTE | 2023-10-20 09:20 | NUR.NOTE ---
Access chart to reconcile EKG in [email or web address] with orders in [employer] Duplicate order cancelled. Nursing Note:
== END 2023-10-15 20:42 | disposition home or self-care (01) ==
PROVIDERS: Student in an Organized Health Care Education/Training Program; Emergency Provider Emergency Medicine; PCP Nurse Practitioner Family
DX: R42 Dizziness and giddiness (principal); R55 Syncope and collapse; H53.452 Other localized visual field defect, left eye; I48.91 Unspecified atrial fibrillation
CPT/HCPCS: 00123; 70496; 70498; 80053; 85652; 86141; 93005; 99285; 70450; 83735; 84484; 85025; 86140; 93010; 99284; J3490

== ENCOUNTER 2024-01-13 16:06 | Outpatient (REF) | payer BC, SELFPAY ==
--- OUTSIDE RECORDS SUMMARY | 2024-01-13 16:07 | XMS_ITS | Encounter Summary ---
Author Organization [facility] [address] [place] [address] Care Team Providers Care Early Morning Babysitter Name Role Phone Val Bautista APRN Primary Care Provider [phone] Encounter Details Date Type Department Care Team (Late st Contact Info) Description 10/15/2023 Interpretation Only Radiology Library at [facility] [place] [address] Unknown None Social History Tobacco Use Types Packs/Day Years Used Date Smoking Tobacco: Never Assessed Sex and Gender Information Value Date Recorded Sex Assigned at Not on file Gender Identity Not on file Sexual Orientation Not on file documented as of this encounter Plan of Treatment Upcoming Encounters Date Type Department Care Team (Late st Contact Info) Description 12/08/2059 Hospital Encounter [place] [id number] Randy Mohan MD [facility] [place] [address] Scheduled Procedures Name Priority Associated Diagnoses Date/Ti me @CRANIECTOMY, EXC. TUMOR, IN FRATENTORIAL OR POST. FOSSA, NOT MENINGIOMA (WRVU 39.89) Brain mass STEREOTACTIC COMPUTER-ASSTD NAVIGATIONAL CRANIAL INTRADURAL (WRVU 3.75) Brain mass MICROSCOPE USE (WRVU 3.46) Brain mass ULTRASONIC GUIDANCE, INTRAOP (WRVU 1.2) Brain mass MODIFIER SYNAPTIVE Brain mass MODIFIER NEUROMONITORING Brain mass documented as of this encounter Procedures Procedure Name Priority Date/Time Associated Diagnosis Comments FILM LIBRARY STORAGE ONLY CT HEAD Routine 10/15/2023 6:55 PM EDT documented in this encounter Results * Film Library- Storage Only CT Head (10/15/2023 6:55 PM EDT) 11/11/2023 6:19 AM EDT Narrative [facility] - 11/11/2023 6:19 AM EDT This exam is auto-finalizing. It's purpose is for storage only. Unknown IMG FILM LIBRARY ORD ERABLES [place], [place] documented in this encounter Visit Diagnoses Not on filedocumented in this encounter Care Teams Early Morning Babysitter Relationship Specialty Start Date End Date Val Bautista APRN [address] [place] [address] PCP - General Family Medicine 11/10/23 documented as of this encounter
--- OUTSIDE RECORDS SUMMARY | 2024-01-13 16:07 | XMS_ITS | Encounter Summary ---
Author Organization [facility] [place] [address] Care Team Providers Care Small Products Assembler Name Role Phone Val Bautista APRN Primary Care Provider Encounter Details Date Type Department Care Team (Late st Contact Info) Description 11/23/2023 [place] [address] Ryann Martin, RN Social History Tobacco Use Types Packs/Day Years Used Date Smoking Tobacco: Never Smokeless Tobacco: Never Alcohol Use Standard Drinks/Week Comments Yes 0 (1 standard drink = 0.6 oz pur e alcohol) glass a wine every two weeks Sex and Gender Information Value Date Recorded Sex Assigned at Not on file Gender Identity Not on file Sexual Orientation Not on file documented as of this encounter Miscellaneous Notes * Telephone Encounter - Ryann Martin RN - 11/23/2023 1:38 PM EDT Copied from [facility] #[id number]. Topic: Specialty Dept CRMs - Generic Call >> Nov 23, 2023 10:36 AM Charli Caceres wrote: Specialist: Dr. Mohan Relationship (if other than patient-full name): self Reason for Call: Patient is wondering if her tumor can be removed? Call back to patient. She saw Dr. Mohan in office on 11/18/23. She said following her conversation with him, she feels that she would like to pursue surgery to remove her tumor and is wondering what the next steps are. Advised will send this message to Dr. Mohan. documented in this encounter Plan of Treatment Upcoming Encounters Date Type Department Care Team (Late st Contact Info) Description 12/08/2059 Hospital Encounter [place] [address] Randy Mohan MD [facility] [place] [address] Scheduled Procedures Name Priority Associated Diagnoses Date/Ti me @CRANIECTOMY, EXC. TUMOR, IN FRATENTORIAL OR POST. FOSSA, NOT MENINGIOMA (WRVU 39.89) Brain mass STEREOTACTIC COMPUTER-ASSTD NAVIGATIONAL CRANIAL INTRADURAL (WRVU 3.75) Brain mass MICROSCOPE USE (WRVU 3.46) Brain mass ULTRASONIC GUIDANCE, INTRAOP (WRVU 1.2) Brain mass MODIFIER SYNAPTIVE Brain mass MODIFIER NEUROMONITORING Brain mass documented as of this encounter Visit Diagnoses Not on filedocumented in this encounter Care Teams Small Products Assembler Relationship Specialty Start Date End Date Val Bautista APRN [address] [place] [address] PCP - General Family Medicine 11/10/23 documented as of this encounter
--- OUTSIDE RECORDS SUMMARY | 2024-01-13 16:07 | XMS_ITS | Encounter Summary ---
Author Organization Formerly [facility] Address [facility] [place] [address] Care Team Providers Care Reference Librarian Name Role Phone Juan Carlos Maldonado MD Primary Care Provider Encounter Details Date Type Department Care Team (Late st Contact Info) Description 10/15/2023 1:15 PM EDT Ancillary Procedure Radiology Library at [facility] T[place]JA Sam [phone] Val Bautista APRN [address] [place] [address] Social History Tobacco Use Types Packs/Day Years Used Date Smoking Tobacco: Never Assessed Sex and Gender Information Value Date Recorded Sex Assigned at Not on file Gender Identity Not on file Sexual Orientation Not on file documented as of this encounter Plan of Treatment Upcoming Encounters Date Type Department Care Team (Late st Contact Info) Description 12/08/2059 Hospital Encounter [place] [phone] Randy Mohan MD [facility] [place] [address] Scheduled Procedures Name Priority Associated Diagnoses Date/Ti [...] LIBRARY STORAGE ONLY CT HEAD Routine 10/15/2023 1:15 PM EDT documented in this encounter Results * Film Library- Storage Only CT Head (10/15/2023 1:15 PM EDT) 11/10/2023 7:44 PM EDT Narrative RAD - 11/10/2023 7:44 PM EDT This exam is auto-finalizing. It's purpose is for storage only. Val Bautista APRN IMElinor FILM LIBRARY ORD ERABLES [place], [place] documented in this encounter Visit Diagnoses Not on filedocumented in this encounter Care Teams Reference Librarian Relationship Specialty Start Date End Date Juan Carlos Maldonado MD [address] [place] [address] PCP - General Family Medicine 11/20/16 11/09/23 documented as of this encounter
--- OUTSIDE RECORDS SUMMARY | 2024-01-13 16:07 | XMS_ITS | Encounter Summary ---
Author Organization [facility] Address [facility] [place] [address] Care Team Providers Care Blanchard Grinder Operator Name Role Phone Juan Carlos Maldonado MD Primary Care Provider Encounter Details Date Type Department Care Team (Late st Contact Info) Description 10/15/2023 6:55 PM EDT Ancillary Procedure Radiology Library at [facility] [place] [address] Unknown None Social History Tobacco Use Types [...] Description 12/08/2059 Hospital Encounter Main [place] [phone] [facility] [place] [address] Scheduled Procedures Name Priority Associated Diagnoses Date/Ti [...] PM EDT) 11/11/2023 6:19 AM EDT Narrative [facility] - 11/11/2023 6:19 AM EDT This exam is auto-finalizing. It's purpose is for storage only. Unknown IMG FILM LIBRARY ORD ERABLES [place], [place] documented in this encounter Visit Diagnoses Not on filedocumented in this encounter Care Teams Blanchard Grinder Operator Relationship Specialty Start Date End Date Juan Carlos Maldonado MD [address] [place] [address] PCP - General Family Medicine 11/20/16 11/09/23 documented as of this encounter
--- OUTSIDE RECORDS SUMMARY | 2024-01-13 16:07 | XMS_ITS | Encounter Summary ---
Author Organization [facility] Address [facility] [place] [address] Care Team Providers Care Cafeteria Cook Name Role Phone Juan Carlos Maldonado MD Primary Care Provider Encounter Details Date Type Department Care Team (Late st Contact Info) Description 11/08/2023 8:40 AM EDT Ancillary Procedure Radiology Library at [facility] [place] [phone] Val Bautista APRN [address] [place] [address] Social History Tobacco Use Types Packs/Day Years Used Date Smoking Tobacco: Never Assessed Sex and Gender Information Value Date Recorded Sex Assigned at Not on file Gender Identity Not on file Sexual Orientation Not on file documented as of this encounter Plan of Treatment Upcoming Encounters Date Type Department Care Team (Late st Contact Info) Description 12/08/2059 Hospital Encounter [place] [phone] Randy Mohan MD [facility] [place] [address] Scheduled Procedures Name Priority Associated Diagnoses Date/Ti [...] Associated Diagnosis Comments FILM LIBRARY STORAGE ONLY MR HEAD Routine 11/08/2023 8:40 AM EDT documented in this encounter Results * Film Library- Storage Only MR Head (11/08/2023 8:40 AM EDT) 11/10/2023 7:44 PM EDT Narrative RAD - 11/10/2023 7:44 PM EDT This exam is auto-finalizing. It's purpose is for storage only. Val Bautista APRN IMElinor FILM LIBRARY ORD ERABLES [place], [place] documented in this encounter Visit Diagnoses Not on filedocumented in this encounter Care Teams Cafeteria Cook Relationship Specialty Start Date End Date Juan Carlos Maldonado MD [address] [place] [id number] PCP - General Family Medicine 11/20/16 11/09/23 documented as of this encounter
--- OUTSIDE RECORDS SUMMARY | 2024-01-13 16:07 | XMS_ITS | Encounter Summary ---
Author Organization [facility] [address] Care Team Providers Care Animal Breeder Name Role Phone Val Bautista APRN Primary Care Provider [phone] Encounter Details Date Type Department Care Team (Latest Contact Info) Description 11/18/2023 Travel Social History Tobacco Use Types Packs/Day Years [...] Description 12/08/2059 Hospital Encounter [place] [phone] Randy Mohan MD [facility] [place] [address] Scheduled Procedures Name Priority Associated Diagnoses Date/Ti [...] on filedocumented in this encounter Care Teams Animal Breeder Relationship Specialty Start Date End Date Val Bautista APRN [address] [place] [address] PCP - General Family Medicine 11/10/23 documented as of this encounter
--- OUTSIDE RECORDS SUMMARY | 2024-01-13 16:07 | XMS_ITS | Encounter Summary ---
Author Organization [facility] [place] [address] Care Team Providers Care Admission Nurse Coordinator Name Role Phone Val Bautista APRN Primary Care Provider [phone] Encounter Details Date Type Department Care Team (Late st Contact Info) Description 11/08/2023 Interpretation Only Radiology Library at [facility] [place] [address] Val Bautista APRN [address] [place], [place] [address] Social History Tobacco Use Types Packs/Day Years Used Date Smoking Tobacco: Never Assessed Sex and Gender Information Value Date Recorded Sex Assigned at Not on file Gender Identity Not on file Sexual Orientation Not on file documented as of this encounter Plan of Treatment Upcoming Encounters Date Type Department Care Team (Late st Contact Info) Description 12/08/2059 Hospital Encounter [place] [phone] Randy Mohan MD [facility] [address] Scheduled Procedures Name Priority Associated Diagnoses Date/Ti [...] Bautista APRN IMElinor FILM LIBRARY ORD ERABLES [place], [place] documented in this encounter Visit Diagnoses Not on filedocumented in this encounter Care Teams Admission Nurse Coordinator Relationship Specialty Start Date End Date Val Bautista APRN [address] [place] [address] PCP - General Family Medicine 11/10/23 documented as of this encounter
--- OUTSIDE RECORDS SUMMARY | 2024-01-13 16:07 | XMS_ITS | Encounter Summary ---
Author Organization [facility] [place] [address] Care Team Providers Care Executive Chef Assistant Name Role Phone Val Bautista APRN Primary Care Provider [phone] Reason for Referral * Consultation (Urgent) - Authorized Specialty Diagnoses / Procedures Referred By Marcelo mcnulty Referred To Contact Neurosurgery Diagnoses Disorder of brain, unspecified Val Bautista APRN [address] [place] [address] [facility] Neurosurgery [address] [place] [phone] Referral ID Status Reason Start Date Expiration Date Visits Requested Visits Authorized [id number] Authorized Consult, Test & Treat PCP Updated and/or Approved 11/10/2023 11/09/2024 6 6 Encounter Details Date Type Department Care Team (Latest Contact Info) Description 11/10/2023 Transcribe Orders eDH Incoming Referrals [phone] Val Bautista APRN [address] [place] [address] Disorder of brain, unspecified Social History Tobacco Use Types Packs/Day Years Used Date Smoking Tobacco: Never Assessed Sex and Gender Information Value Date Recorded Sex Assigned at Not on file Gender Identity Not on file Sexual Orientation Not on file documented as of this encounter Plan of Treatment Upcoming Encounters Date Type Department Care Team (Late st Contact Info) Description 12/08/2059 Hospital Encounter [place] [address] Randy Mohan MD [facility] [place] [address] Scheduled Procedures Name Priority Associated Diagnoses Date/Ti me @CRANIECTOMY, EXC. TUMOR, IN FRATENTORIAL OR POST. FOSSA, NOT MENINGIOMA (WRVU 39.89) Brain mass STEREOTACTIC COMPUTER-ASSTD NAVIGATIONAL CRANIAL INTRADURAL (WRVU 3.75) Brain mass MICROSCOPE USE (WRVU 3.46) Brain mass ULTRASONIC GUIDANCE, INTRAOP (WRVU 1.2) Brain mass MODIFIER SYNAPTIVE Brain mass MODIFIER NEUROMONITORING Brain mass Scheduled Referrals Name Type Priority Associated Diagnoses Orde r Schedule Referral to Neurosurgery Outpatient Referral Urgent Disorder of brain, unspecified Ordered: 11/10/2023 documented as of this encounter Visit Diagnoses Diagnosis Disorder of brain, unspecified documented in this encounter Care Teams Executive Chef Assistant Relationship Specialty Start Date End Date Val Bautista APRN [address] [place] [address] PCP - General Family Medicine 11/10/23 documented as of this encounter
--- OUTSIDE RECORDS SUMMARY | 2024-01-13 16:07 | XMS_ITS | Clinical Summary ---
Author Organization [facility] [place] [address] Care Team Providers Care Service Order Clerk Name Role Phone Val Bautista APRN Primary Care Provider [phone] Allergies Active Allergy Reactions Criticality Noted Date Comments Erythromycin Base Low CIS - Nausea/Vomiting Medications Medication Sig Dispensed Refills Start Date End Date Status ibuprofen (ADVIL) 200 mg tablet 01/08/2009 Active Encounters Date Type Department Care Team Description 11/23/2023 [place] [address] Ryann Martin RN 11/18/2023 11:20 AM EDT Office [place] [address] Randy Mohan MD Brain mass 11/18/2023 Travel 11/10/2023 Transcribe Orders eDH Incoming Referrals [phone] Val Bautista APRN Disorder of brain, unspecified 11/08/2023 8:40 AM EDT Ancillary Procedure Radiology Library at [facility] [place] [address] Val Batuista APRN 11/08/2023 Interpretation Only Radiology Library at [facility] [place] [address] Val Bautista APRN 10/15/2023 6:55 PM EDT Ancillary Procedure Radiology Library at [facility] [place] [address] Unknown 10/15/2023 3:30 PM EDT Telehealth [place] [address] Telehealth, Neurology 10/15/2023 1:15 PM EDT Ancillary Procedure Radiology Library at [facility] [place] [address] Val Bautista APRN 10/15/2023 Interpretation Only Radiology Library at [facility] [place] [phone] Unknown 10/15/2023 Interpretation Only Radiology Library at [facility] [place] [phone] Val Bautista, LAURIE from Last 3 Months Social History Tobacco Use Types Packs/Day Years Used Date Smoking Tobacco: Never Smokeless Tobacco: Never Tobacco Cessation:Counseling Given: Not Answered Alcohol Use Standard Drinks/Week Comments Yes 0 (1 standard drink = 0.6 oz pur e alcohol) glass a wine every two weeks Sex and Gender Information Value Date Recorded Sex Assigned at Not on file Gender Identity Not on file Sexual Orientation Not on file Last Filed Vital Signs Vital Sign Reading Time Taken Comments Blood Pressure 134/66 11/18/2023 11:05 AM EDT Pulse 73 11/18/2023 11:05 AM EDT Temperature 37.1 ??C (98.7 ??F) 11/18/2023 11:05 AM E DT Respiratory Rate 16 11/18/2023 11:05 AM EDT Oxygen Saturation 99% 11/18/2023 11:05 AM EDT Inhaled Oxygen Concentration - - Weight 63.2 kg (139 lb 6.4 oz) 11/18/2023 11:05 AM EDT Height 167.6 cm (5' 6) 11/18/2023 11:05 AM EDT Body Mass Index 22.5 11/18/2023 11:05 AM EDT Plan of Treatment Upcoming Encounters Date Type Department Care Team (Late st Contact Info) Description 12/08/2059 Hospital Encounter Main Operating [place] [phone] Randy Mohan MD [facility] [address] [place] [address] Scheduled Procedures Name Priority Associated Diagnoses Date/Ti me @CRANIECTOMY, EXC. TUMOR, IN FRATENTORIAL OR POST. FOSSA, NOT MENINGIOMA (WRVU 39.89) Brain mass STEREOTACTIC COMPUTER-ASSTD NAVIGATIONAL CRANIAL INTRADURAL (WRVU 3.75) Brain mass MICROSCOPE USE (WRVU 3.46) Brain mass ULTRASONIC GUIDANCE, INTRAOP (WRVU 1.2) Brain mass MODIFIER SYNAPTIVE Brain mass MODIFIER NEUROMONITORING Brain mass Health Maintenance Due Date Last Done Comments CT Colonography 1959 Colonoscopy 1959 Colorectal Cancer Screening 1959 FIT DNA 1959 FIT 1959 Sigmoidoscopy (10 year) with FIT yearly 1959 Sigmoidoscopy 1959 HIV screen 1977 Hepatitis C Screening 1977 Tetanus/Diphtheria/Pertussis Vaccines (1 - Tdap) 02/19 HPV test 1989 PAP Smear 1989 Breast Cancer Share Decision Needed 1999 Breast Cancer screening 1999 Zoster vaccine (1 of 2) 2009 Advance Directive 2014 Covid-19 Vaccine ( - ) 11/28/2023 Influenza (Flu) vaccine (1 o f 1 - Influenza standard series) 11/28/2023 Procedures Procedure Name Priority Date/Time Associated Diagnosis Comments MRI/MRA SCAN 11/10/2023 12:00 AM EDT FILM LIBRARY STORAGE ONLY MR HEAD Routine 11/08/2023 8:40 AM EDT FILM LIBRARY STORAGE ONLY CT HEAD Routine 10/15/2023 6:55 PM EDT FILM LIBRARY STORAGE ONLY CT HEAD Routine 10/15/2023 1:15 PM EDT from Last 3 Months Results * Scan Doc: MRI/MRA (11/10/2023 12:00 AM EDT) Anatomical Region Laterality Modality Other Narrative 11/10/2023 12:00 AM EDT Ordered by an unspecified provider. Scanning Provider MEDIA MGR SCAN EXT O RDR/RSLT * Film Library- Storage Only MR Head (11/08/2023 8:40 AM EDT) 11/10/2023 7:44 PM EDT Narrative [facility] - 11/10/2023 7:44 PM EDT This exam is auto-finalizing. It's purpose is for storage only. Val Bautista APRN IMG FILM LIBRARY ORD ERABLES Performing Organization Address City/[facility] Co de Phone Number [place], [place] * Film Library- Storage Only CT Head (10/15/2023 6:55 PM EDT) Only the most recent of2 resultswithin the time period is included. 11/11/2023 6:19 AM EDT Narrative [facility] - 11/11/2023 6:19 AM EDT This exam is auto-finalizing. It's purpose is for storage only. Unknown [facility] Conference Hound ORD ERABLES Performing Organization Address [facility] de Phone Number [place], [place] from Last 3 Months Care Teams Service Order Clerk Relationship Specialty Start Date End Date Val Bautista APRN [address] [place] [address] PCP - General Family Medicine 11/10/23
--- OUTSIDE RECORDS SUMMARY | 2024-01-13 16:07 | XMS_ITS | Encounter Summary ---
Author Organization [facility] Address [facility] [place] [address] Care Team Providers Care Beach Lifeguard Name Role Phone Val Bautista APRN Primary Care Provider [phone] Reason for Referral * Diagnostic Test (Routine) - New Request Specialty Diagnoses / Procedures Referred By Marcelo mcnulty Referred To Contact Radiology Diagnoses Brain mass Procedures MRI Brain wwo Contrast (Generic) Randy Mohan MD [facility] [place] [address] Referral ID Status Reason Start Date Expiration Date Visits Requested Visits Authorized [id number] New Request Specialty Service Requested 12/01/2023 05/30/2025 1 1 Reason for Visit * Consultation (Urgent) - Authorized Specialty Diagnoses / Procedures Referred By Marcelo mcnulty Referred To Contact Neurosurgery Diagnoses Disorder of brain, unspecified Val Bautista APRN [address] [place] [address] [facility] Neurosurgery [address] [place] [phone] Referral ID Status Reason Start Date Expiration Date Visits Requested Visits Authorized [id number] Authorized Consult, Test & Treat PCP Updated and/or Approved 11/10/2023 11/09/2024 6 6 Encounter Details Date Type Department Care Team (Late st Contact Info) Description 11/18/2023 11:20 AM EDT [place] [address] Randy Mohan MD [facility] [place] [address] Brain mass Social History Tobacco Use Types Packs/Day Years [...] on file documented as of this encounter Last Filed Vital Signs Vital Sign Reading [...] Mass Index 22.5 11/18/2023 11:05 AM EDT documented in this encounter Progress Notes * Randy Mohan MD - 11/18/2023 11:20 AM EDT [facility] NEUROSURGICAL ONCOLOGY DATE: 11/18/2023 NAME: Keesha Blanca is a 63 y/o female seen in consultation at the request of Val Bautista APRN for evaluation of a new brain mass. She recently presented to an outside hospital emergency department with acute vision changes involving the left eye that have since resolved. During evaluation for those symptoms a CT of the head, and subsequently MRI of the brain, were obtained revealing a posterior fossa mass. With regards to the mass there are no associated symptoms. Specifically she denies headaches, nausea or emesis, numbness, weakness, paresthesias, dysphagia, dysarthria, or dysphonia. No h/o tumors or malignancy. No family hx of brain tumors. No prior intracranial imaging. Her past medical history, medications, and allergies were reviewed and are up to date in [facility]. No significant cardiac disease including hypertension, arrhythmias, CAD, or LA. No pulmonary disease including COPD or asthma. No hepatic, renal, or endocrine dysfunction. No anticoagulation or antiplatelet medications. No h/o thromboses or known complications from general anesthesia. No tobacco use. She was joined in the appointment with a friend. EXAM: Vitals Flowsheet Row Office Visit from 11/18/2023 in Neurosurgery at [facility] Weight 63.2 kg (139 lb 6.4 oz) Height 167.6 cm (5' 6) BSA (Calculated - sq m) 1.72 sq meters BMI (Calculated) 22.5 Temp 37.1 ??C (98.7 ??F) Temp src Temporal Heart Rate 73 Resp 16 BP 134/66 Patient Position Sitting SpO2 99 % On examination she was pleasant and interactive. Her spontaneous speech was fluent and appropriate.No dysarthria. PERRL. EOMI. VFF. Visual acuity was grossly intact. No facial asymmetry. Symmetric elevation of the palate. Symmetric should shrug. Tongue midline to protrusion. Her strength was 5/5 on segmental motor exam. LT sensation was intact and symmetric. She was able to stand unassisted fromthe seated position and ambulate with a normal gait. IMAGING: CT and MRI of the brain were personally reviewed. The CT demonstrates and an ovoid mass at the Foramen of Luschka that is isodense on CT. On the MRI this measures approximately 15 x 10mm and is associated with homogenous contrast enhancement. No evidence of other lesions. No surrounding mass effect. No evidence of hydrocephalus or underlying edema. A/P: 63 y/o female referred for evaluation of an incidental posterior fossa mass. During the appointment we reviewed the imaging at length with discussion of the relevant surrounding anatomy and differential diagnosis which includes a choroid plexus papilloma, ependymoma, subependymoma, other glialneoplasm, or less likely metastasis. Her symptoms in the ED are felt to be unrelated to the mass, and her current neurologic exam is normal. There is no mass effect on the cerebellar surface or medulla, nor is there edema or evidence of hydrocephalus. We discussed that the imaging features are likely benign, but we do not know this definitely without a tissue diagnosis and certainly with a singleimage in time. Management options were discussed including surveillance with short interval MRI (3 months) or resection of the lesion for tissue diagnosis and cytoreduction. At the present time she would like to continue with observation which is reasonable. All questions were answered and she is comfortable with the plan as outlined. Concerning signs and symptoms were outlined. Randy Mohan MD documented in this encounter Plan of Treatment Upcoming Encounters Date Type Department Care Team (Late st Contact Info) Description 12/08/2059 Hospital Encounter [place] [address] Randy Mohan MD [facility] [place] [address] Scheduled Orders Name Type Priority Associated Diagnoses Orde r Schedule SURGICAL CASE REQUEST: @CRANIECTOMY, EXC. TUMOR, INFRATENTORIAL OR POST. FOSSA, NOT MENINGIOMA (WRVU 39.89), STEREOTACTIC COMPUTER-ASSTD NAVIGATIONAL CRANIAL INTRADURAL (WRVU 3.75), MICROSCOPE USE (WRVU 3.46), ULTRASONIC GUIDANCE, INTRAOP (WRV... Procedures Routine Brain mass Ordered: 12/01/2023 MRI Brain wwo Contrast (Generic) Imaging Routine Brain mass Expected: 12/01/2023, Expires: 06/01/2024 Scheduled Procedures Name Priority Associated Diagnoses Date/Ti me @CRANIECTOMY, EXC. TUMOR, IN FRATENTORIAL OR POST. FOSSA, NOT MENINGIOMA (WRVU 39.89) Brain mass STEREOTACTIC COMPUTER-ASSTD NAVIGATIONAL CRANIAL INTRADURAL (WRVU 3.75) Brain mass MICROSCOPE USE (WRVU 3.46) Brain mass ULTRASONIC GUIDANCE, INTRAOP (WRVU 1.2) Brain mass MODIFIER SYNAPTIVE Brain mass MODIFIER NEUROMONITORING Brain mass documented as of this encounter Visit Diagnoses Diagnosis Brain mass Unspecified condition of brain documented in this encounter Care Teams Beach Lifeguard Relationship Specialty Start Date End Date Val Bautista APRN [address] [place] [address] PCP - General Family Medicine 11/10/23 documented as of this encounter
--- OUTSIDE RECORDS SUMMARY | 2024-01-13 16:08 | XMS_ITS | Encounter Summary ---
Author Organization [facility] [place] [address] Care Team Providers Care Power Grader Operator Name Role Phone Val Bautista APRN Primary Care Provider [phone] Encounter Details Date Type Department Care Team (Late st Contact Info) Description 10/15/2023 Interpretation Only Radiology Library at [facility] [place] [place] [address] Val Bautista APRN [address] [place], [place] [address] Social History Tobacco Use Types Packs/Day Years Used Date Smoking Tobacco: Never Assessed Sex and Gender Information Value Date Recorded Sex Assigned at Not on file Gender Identity Not on file Sexual Orientation Not on file documented as of this encounter Plan of Treatment Upcoming Encounters Date Type Department Care Team (Late st Contact Info) Description 12/08/2059 Hospital Encounter [place] [phone] Randy Mohan MD [facility] [place] [address] Scheduled Procedures Name Priority Associated Diagnoses Date/Ti [...] Bautista APRN IMElinor FILM LIBRARY ORD ERABLES [place], [place] documented in this encounter Visit Diagnoses Not on filedocumented in this encounter Care Teams Power Grader Operator Relationship Specialty Start Date End Date Val Bautista APRN [address] [place] [address] PCP - General Family Medicine 11/10/23 documented as of this encounter
--- OUTSIDE RECORDS SUMMARY | 2024-01-13 16:08 | XMS_ITS | Encounter Summary ---
Author Organization [facility] Address [address] [place] [address] Care Team Providers Care Grievance Manager Name Role Phone Unknown, Provider MD Primary Care Provider [phone] None, Provider Primary Care Provider Unavailabl e Unknown, Provider MD Unavailable [phone] Encounter Details Date Type Department Care Team (Late st Contact Info) Description 05/15/2022 Lab Requisition [facility] Pathology & Laboratory Medicine - [address] [address] Rolando Michael, [address] [phone] Neoplasm of unspecified behavior of bone, soft [...] management options, if applicable. 05/19/2022 13:22 EST [facility] Final Diagnosis A. SKIN OF HELIX, LEFT MID, SHAVE BIOPSY: - Reactive epidermal hyperplasia with hyperkeratosis and parakeratosis. See comment. B. SKIN OF CHEEK, LEFT, SHAVE BIOPSY: - Basal cell carcinoma, nodular type (pigmented). - Basal cell carcinoma present at deep tissue edge. 05/19/2022 13:22 [facility] Diagnosis Comment Numerous sections of the biopsy from ? left helix? (A) were reviewed. 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 There is no evidence of malignancy on either the original or additional deeper sections. 05/19/2022 13:22 [facility] Attestation By the signature below, the attending physician certifies that they have 1) personally conducted a gross and/or microscopic examination of the described specimen(s), and/or personally interpreted the results of laboratory testing of the described specimen(s), and 2) personally rendered or confirmed the above diagnosis. 05/19/2022 13:22 [facility] at 1322 Microscopic Description A. 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 05/19/2022 13:22 [facility] Clinical History A. Bleeding skin neoplasm; B. Ulcerated skin lesion; clinical diagnosis code: D49.2 05/19/2022 13:22 [facility] Gross Description A. Received in [...] KATHRYN LASSITER(ASCP) 05/18/2022 7:25 05/19/2022 13:22 EST [facility] Performing Lab [facility] 05/19/2022 13:22 EST [facility] Scanned Images 05/19/2022 13:22 EST [facility] Tissue TISSUE SPECIMEN FROM SKIN / Unknown 05/15/2022 8:45 EST 05/15/2022 21:15 EST Tissue specimen (specimen) SPECIMEN FROM SKIN / Unknown 05/15/2022 8:45 EST 05/15/2022 21:15 EST Rolando PERALTA PATHOLOGY ORDERABL ES [facility] [address] [place] [address] documented in this encounter Visit Diagnoses Diagnosis Neoplasm of unspecified behavior of bone, soft tissue, and skin documented in this encounter Care Teams Grievance Manager Relationship Specialty Start Date End Date Unknown, ProviderMD PCP - General 04/29/22 11/23/22 None, Provider PCP - General 11/24/22 Unknown, ProviderMD 11/24/22 documented as of this encounter
--- OUTSIDE RECORDS SUMMARY | 2024-01-13 16:08 | XMS_ITS | Encounter Summary ---
Author Organization [facility] Address [facility] [place] [address] Care Team Providers Care Water Team Leader Name Role Phone Juan Carlos Maldonado MD Primary Care Provider [phone] Encounter Details Date Type Department Care Team (Late st Contact Info) Description 02/05/2010 Interpretation Only Radiology [address] [place] [address] [place] [phone] Unknown None Social History Tobacco Use Types [...] Description 12/08/2059 Hospital Encounter [place] [phone] Randy Mohan MD [facility] [address] Scheduled Procedures Name Priority Associated Diagnoses Date/Ti [...] 3:06 PM EST APD Historical Result Principal Technical Internship: ??VERO BERNSTEIN RIGHT HAND - THREE VIEWS: Three views [...] of the hand. Vero Valdovinos MD KG/ma [id number] CC: Procedure Note Unknown - 09/26/2018 APD Historical Result Principal Technical Internship: VERO VALDOVINOS RIGHT HAND - THREE VIEWS: [...] of the hand. Vero Valdovinos MD KG/ma [id number] CC: Unknown IMG DX ORDERABLES documented in this encounter Visit Diagnoses Not on filedocumented in this encounter Care Teams Water Team Leader Relationship Specialty Start Date End Date Juan Carlos Maldonado MD [address] [place] [address] PCP - General Family Medicine 11/20/16 11/09/23 documented as of this encounter
--- OUTSIDE RECORDS SUMMARY | 2024-01-13 16:08 | XMS_ITS | Encounter Summary ---
Author Organization [facility] [place] [address] Care Team Providers Care Hat Brim Curler Name Role Phone Juan Carlos Maldonado MD Primary Care Provider [phone] Reason for Referral * Consultation (Routine) - Closed Specialty Diagnoses / Procedures Referred By Marcelo mcnulty Referred To Contact Plastic Surgery Diagnoses S/P silicone breast implant Val Bautista APRN [address] [place] [address] [facility] [address] [place] [phone] Referral ID Status Reason Start Date Expiration Date V isits Requested Visits Authorized [id number] Closed Consult, Test & Treat PCP Updated and/or Approved 01/11/2023 01/11/2024 12 12 Encounter Details Date Type Department Care Team (Latest Contact Info) Description 01/11/2023 Transcribe Orders eDH Incoming Referrals [phone] Val Bautista APRN [address] [place], [place] [id number] S/P silicone breast implant Social History Tobacco [...] Description 12/08/2059 Hospital Encounter [place] [address] Randy Mohan MD [facility] [place] [address] Scheduled Procedures Name Priority Associated Diagnoses Date/Ti [...] means documented in this encounter Care Teams Hat Brim Curler Relationship Specialty Start Date End Date Juan Carlos Maldonado MD [address] [place] [address] PCP - General Family Medicine 11/20/16 11/09/23 documented as of this encounter
--- OUTSIDE RECORDS SUMMARY | 2024-01-13 16:08 | XMS_ITS | Encounter Summary ---
Author Organization [facility] Address [address] [place] [address] Care Team Providers Care Lands Resource Manager Name Role Phone Unknown, Provider MD Primary Care Provider [phone] None, Provider Primary Care Provider Unavailabl e Unknown, Provider MD Unavailable [phone] Encounter Details Date Type Department Care Team (Late st Contact Info) Description 08/21/2022 Lab Requisition [facility] Lab - Main [place] [address] [place] [address] Prashant Aldridge, [address] [place], [place] [address] Basal cell carcinoma of skin, unspecified Social [...] management options, if applicable. 08/25/2022 15:18 EDT [facility] Final Diagnosis A. SKIN OF CHEEK, LEFT, EXCISION FOR FROZEN SECTION: - Residual basal cell carcinoma, nodular type; peripheral and deep margins negative. See comment. - Epidermal reparative change and dermal scar, consistent with prior biopsy site. - Background dermal solar elastosis. 08/25/2022 15:18 [facility] Diagnosis Comment Correlation is made with the prior biopsy ([id number]). 08/25/2022 15:18 [facility] Attestation By the signature below, the attending physician certifies that they have 1) personally conducted a gross and/or microscopic examination of the described specimen(s), and/or personally interpreted the results of laboratory testing of the described specimen(s), and 2) personally rendered or confirmed the above diagnosis. 08/25/2022 15:18 [facility] at 1518 Intraoperative Consultation A. SKIN [...] 08/20/22 (Frozen section performed and evaluated at [facility]) 08/25/2022 15:18 [facility] Clinical History left cheek BCC 07/29 15:18 [facility] Gross Description A. Received fresh labeled [...] portion of FSA1 control. 08/25/2022 15:18 EDT [facility] Performing Lab [facility] 08/25/2022 15:18 EDT [facility] Scanned Images 08/25/2022 15:18 EDT [facility] Tissue SPECIMEN FROM SKIN / Unknown 08/20/2022 9:20 EDT 08/21/2022 9:33 EDT Prashant Aldridge DO PATHOLOGY ORDER WANDA [facility] [address] [place] [address] documented in this encounter Visit Diagnoses Diagnosis Basal cell carcinoma of skin, unspecified documented in this encounter Care Teams Lands Resource Manager Relationship Specialty Start Date End Date Unknown, ProviderMD PCP - General 04/29/22 11/23/22 None, Provider PCP - General 11/24/22 Unknown, ProviderMD 11/24/22 documented as of this encounter
--- OUTSIDE RECORDS SUMMARY | 2024-01-13 16:08 | XMS_ITS | Clinical Summary ---
Author Organization [facility] Address [address] [place] [address] Care Team Providers Care Managing Director Atlas Name Role Phone None, Provider Primary Care Provider Unavailabl e Unknown, Provider Unavailable [phone] Social History Tobacco Use Types Packs/Day Years [...] Dates Phone Address Type ERNESTO BRIANA [employer] [place] [id number] 2020-Present [address] [place] [address] Other GL Care Teams Managing Director Atlas Relationship Specialty Start Date End Date None, Provider PCP - General 11/24/22 Unknown, Provider, 11/24/22
--- OUTSIDE RECORDS SUMMARY | 2024-01-13 16:08 | XMS_ITS | Referral Summary ---
Author Organization [facility] Address [address] [place] [address] Care Team Providers Care Coal Getter Name Role Phone None, Provider Primary Care Provider Unavailabl e Unknown, Provider Unavailable [phone] Social History Tobacco Use Types Packs/Day Years Used Date Smoking Tobacco: Never Assessed Sex and Gender Information Value Date Recorded Sex Assigned at Not on file Gender Identity Not on file Sexual Orientation Not on file Plan of Treatment Not on file Insurance Payer Benefit Plan / Group Subscriber ID Effective Dates Phone Address Type [facility] [id number] 2020-Present [address] [place] [address] Other GL Care Teams Coal Getter Relationship Specialty Start Date End Date None, Provider PCP - General 11/24/22 Unknown, Provider, 11/24/22
--- OUTSIDE RECORDS SUMMARY | 2024-01-13 16:08 | XMS_ITS | Encounter Summary ---
Author Organization [facility] [place] [address] Care Team Providers Care Loan Administrator Name Role Phone Juan Carlos Maldonado MD Primary Care Provider [phone] Encounter Details Date Type Department Care Team (Late st Contact Info) Description 10/15/2023 3:30 PM EDT Telehealth notes only TeleHealth [facility] [place] [address] Telehealth, Neurology None Social History Tobacco Use Types Packs/Day Years Used Date Smoking Tobacco: Never Assessed Sex and Gender Information Value Date Recorded Sex Assigned at Not on file Gender Identity Not on file Sexual Orientation Not on file documented as of this encounter Miscellaneous Notes * Consult Note - Leonardo Martin MD - 10/15/2023 3:30 PM EDT [facility] TELENEUROLOGY EMERGENT TELENEUROLOGY CONSULT NOTE Date 10/15/23 Patient: Keesha Blanca : 1960 Gender: female VISIT Requesting Location: [facility] ([facility]) Requesting Physician: Dr. Stewart Diagnosis/Reason for Consult: transient ischemic attack (Note: not a tPA or thrombectomy candidate) Arrival Date: 10/15/2023 Arrival Time: 12:55 pm Consult Request Time: 3:29 pm Start Time of Video Consult: 3:42 pm Time Last Known Well: 7 am PROVIDER History: 63 year old right handed woman with PMHx of a-fib previously treated with ablation with incomplete remission until few months ago when she started to have more a-fib than before. She wa sat her basline this mornign at 7 am when she suddently had left eye upper half visionlloss that lasted for 3 montues before it got resloved. Since then she has been feeling excessively fatigued. She denies any other associated neurological deficits. Past Medical History: a-fib s/p ablation with incomplete remission Current Medications: denies any Allergies: Allergies Allergen Reactions Erythromycin Base CIS - Nausea/Vomiting Neurologic Social History: Independent with ADLs Are you a current smoker or have you ever smoked: Denies Do you consume alcohol: Denies Vitals: Pulse: 57 Blood pressure: 106/74 NIH STROKE SCALE 1A. Level of Consciousness 0 1B. LOC Questions 0 1C. LOC Commands 0 2. Best Gaze 0 3. Visual 0 4. Facial Palsy 0 5. Motor Arm Left Arm 0 Right Arm 0 6. Motor Leg Left Leg 0 Right Leg 0 7. Limb Ataxia 0 8. Sensory 0 9. Best Language 0 10. Dysarthria 0 11. 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 On examination today NIH is 0 with no focal neurological deficits and visual acuity is 20/40 and 20/50 respectively in the right and left eyes. Fortunately the symptoms only lasted for 3 minutes before complete resolution. The patient continues to have fatigue since the event. Her EKG and telemetry in the emergency room is normal sinus rhythm and vital signs are stable with slightly noticeable low blood pressure. RECOMMENDATIONS/PLAN: -Start apixaban 5 mg twice daily -Head and neck CT angiogram to rule out left-sided ICA or ophthalmic artery thrombus -Brain MRI can be obtained as inpatient or outpatient electively OBSERVATION/ADMISSION/TRANSFER: Monitor in ED then discharged in stable Leonardo Martin MD [facility] TeleNeurology documented in this encounter Plan of Treatment Upcoming Encounters Date Type Department Care Team (Late st Contact Info) Description 12/08/2059 Hospital Encounter [place] [address] Randy Mohan MD [facility] [place] [address] Scheduled Procedures Name Priority Associated Diagnoses Date/Ti [...] on filedocumented in this encounter Care Teams Loan Administrator Relationship Specialty Start Date End Date Juan Carlos Maldonado MD [address] [place] [address] PCP - General Family Medicine 11/20/16 11/09/23 documented as of this encounter
[2024-01-13 16:25] LABS: HCT 42.8 % (36.0-46.0); MCH 27.5 pg (27.0-33.0); MCHC 32.7 % (32.0-36.0); MCV 84 fL (80-95); MPV 9.8 fL (8.0-11.0); Platelet Count 250 10^3/uL (130-400); RBC 5.09 10^6/uL (3.93-5.22); RDW 12.7 % (11.7-14.6); RDW-SD 38.7 fL; WBC 5.54 10^3/uL (4.4-10.8)
[2024-01-13 17:33] LABS: ALT 23 U/L (14-59); AST 22 U/L (15-37); Albumin 4.3 g/dL (3.4-5.0); Alkaline Phosphatase 73 U/L (46-116); BUN 17 mg/dL (7-18); Bilirubin, Total 1.25 mg/dL (0.2-1.0); CREATININE 0.9 mg/dL (0.55-1.02); Calcium 9.5 mg/dL (8.5-10.1); Calculated LDL 110 mg/dL (<100); Chloride 103 mmol/L (98-107); Cholesterol 221 mg/dL (<200); Estimated GFR 71.39 (mL/min/1.73m2); Glucose 94 mg/dL (74-106); HDL Cholesterol 101 mg/dL (40-60); Potassium 4.3 mmol/L (3.5-5.1); Sodium 143 mmol/L (136-145); Total Protein 7.7 g/dL (6.4-8.2); Triglyceride 52 mg/dL (<150)
== END 2024-01-13 16:07 | disposition home or self-care (01) ==
LOC: NCHCN 16:06
PROVIDERS: PCP Nurse Practitioner Family; Visit Provider Nurse Practitioner Family
DX: Z00.00 Encounter for general adult medical examination without abnormal findings (principal)
CPT/HCPCS: 80053; 80061; 85027

== ENCOUNTER 2024-04-21 12:52 | Outpatient (REF) | payer BC, SELFPAY ==
--- NOTE | 2024-04-21 10:15 | PAPFT_PTH ---
PATIENT: Keesha Blanca LOC: [facility]#:[id number] AGE/SX: 64/F ROOM: RE04/21/[address]: Val Bautista : 1960 BED: DIS: 04/21/2024 SPEC #: [id number] RECD: 04/21/24 17:59 STATUS: ADRIÁN REQ #: [id number] SUNITA: 04/21/24 10:[address]: Val Bautista DEPT: [facility] Cytology RECD BY: Rae Boo Tissues: 1 - CX/ENDOCX FOR PAP SMEARS Procedures: PAP THIN PREP/UVM Screening HPV DNA PROBE Comments: [id number] (HPV 16 & 18/45) (CHLAMYDIA/GC)
--- OUTSIDE RECORDS SUMMARY | 2024-04-21 13:02 | XMS_ITS | Encounter Summary ---
Author Organization [facility] Address [facility] [place] [address] Care Team Providers Care Varnish Remover Name Role Phone Val Bautista APRN Primary Care Provider [phone] Reason for Visit * Reason Onset Date Comments Appointment 04/18/2024 Encounter Details Date Type Department Care Team (Late st Contact Info) Description 04/18/2024 [place] [address] Ruthie Tay RN Appointment Social History Tobacco Use Types Packs/Day Years [...] encounter Miscellaneous Notes * Telephone Encounter - Ruthie Tay RN - 04/18/2024 4:54 PM EST PC to Keesha regarding scheduling MRI Brain ordered by Dr. Randy Mohan on 12/01/23. Pt refused to schedule stating she already had a MRI Brain done at [facility] on 03/20/24 and she received the results on the 03/21/24. documented in this encounter Plan of Treatment Upcoming Encounters Date Type Department Care Team (Late st Contact Info) Description 12/08/2059 Hospital Encounter [place] [address] Randy Mohan MD [facility] [address] Scheduled Procedures Name Priority Associated Diagnoses Date/Ti me @CRANIECTOMY, EXC. TUMOR, IN FRATENTORIAL OR POST. FOSSA, NOT MENINGIOMA (WRVU 39.89) Brain mass STEREOTACTIC COMPUTER-ASSTD NAVIGATIONAL CRANIAL INTRADURAL (WRVU 3.75) Brain mass MICROSCOPE USE (WRVU 3.46) Brain mass ULTRASONIC GUIDANCE, INTRAOP (WRVU 1.2) Brain mass MODIFIER SYNAPTIVE Brain mass MODIFIER NEUROMONITORING Brain mass MODIFIER,STEALTH 3 W/O KINEV O,CRANI/SPINE ONLY Brain mass documented as of this encounter Visit Diagnoses Not on filedocumented in this encounter Care Teams Varnish Remover Relationship Specialty Start Date End Date Val Bautista APRN [address] [place] [address] PCP - General Family Medicine 11/10/23 documented as of this encounter
--- OUTSIDE RECORDS SUMMARY | 2024-04-21 13:02 | XMS_ITS | Encounter Summary ---
Author Organization [facility] Address [facility] [place] [address] Care Team Providers Care Casting Room Operator Name Role Phone Val Bautista APRN Primary Care Provider [phone] Reason for Referral * Diagnostic Test (Routine) - New Request Specialty Diagnoses / Procedures Referred By Marcelo mcnulty Referred To Contact Radiology Diagnoses Brain mass Procedures MRI Brain wwo Contrast (Generic) Randy Mohan MD [facility] [place] [address] Referral ID Status Reason Start Date Expiration Date Visits Requested Visits Authorized [id number] New Request Specialty Service Requested 08/06/2025 1 1 Encounter Details Date Type Department Care Team (Late st Contact Info) Description 02/07/2024 Orders [place] [address] Zahira Plaza RN Brain mass Social History Tobacco Use Types [...] Description 12/08/2059 Hospital Encounter [place] [address] [facility] [place] [address] Scheduled Orders Name Type Priority Associated Diagnoses Orde r Schedule MRI Brain wwo Contrast (Generic) Imaging Routine Brain mass Expected: 02/07/2024, Expires: 08/08/2024 Scheduled Procedures Name Priority Associated Diagnoses Date/Ti [...] brain documented in this encounter Care Teams Casting Room Operator Relationship Specialty Start Date End Date Val Bautista APRN [address] [place] [address] PCP - General Family Medicine 11/10/23 documented as of this encounter
--- OUTSIDE RECORDS SUMMARY | 2024-04-21 13:02 | XMS_ITS | Referral Summary ---
Author Organization [facility] Address [address] [place] [address] Care Team Providers Care Care Rep Name Role Phone None, Provider Primary Care Provider Unavailabl e Unknown, Provider MD Unavailable Unavailable Social History Tobacco Use Types Packs/Day Years Used Date Smoking Tobacco: Never Assessed Comments Unknown Sex and Gender Information Value Date Recorded Sex Assigned at Not on file Legal Sex Female 21:13 EST Gender Identity Not on file Sexual Orientation Not on file Plan of Treatment Not on file [place] [address] [place] [address] ERNESTO Care Teams Care Rep Relationship Specialty Start Date End Date None, Provider PCP - General 11/24/22 Unknown, Provider, 11/24/22
--- OUTSIDE RECORDS SUMMARY | 2024-04-21 13:02 | XMS_ITS | Encounter Summary ---
Author Organization [place] [address] Care Team Providers Care Dust Operator Name Role Phone Val Bautista BORDER MEASURER AND CUTTER Primary Care Provider [phone] Encounter Details Date Type Department Care Team [...] Description 12/08/2059 Hospital Encounter [place] [phone] Randy Mohan MD [facility] [place] [address] Scheduled Procedures Name Priority Associated Diagnoses Date/Ti [...] on filedocumented in this encounter Care Teams Dust Operator Relationship Specialty Start Date End Date Val Bautista APRN [address] [place] [address] PCP - General Family Medicine 11/10/23 documented as of this encounter
--- OUTSIDE RECORDS SUMMARY | 2024-04-21 13:02 | XMS_ITS | Encounter Summary ---
Author Organization [facility] [place] [address] Care Team Providers Care Strategic Account Director Name Role Phone Val Bautista APRN Primary Care Provider [phone] Encounter Details Date Type Department Care Team (Late st Contact Info) Description 11/08/2023 Interpretation Only Radiology Library at [facility] [place] [address] Val Bautista APRN [address] [place], [place] [address] Social History Tobacco Use Types Packs/Day Years Used Date Smoking Tobacco: Never Assessed Sex and Gender Information Value Date Recorded Sex Assigned at Not on file Gender Identity Not on file Sexual Orientation Not on file documented as of this encounter Plan of Treatment Upcoming Encounters Date Type Department Care Team (Late st Contact Info) Description 12/08/2059 Hospital Encounter [place] [phone] Randy Mohan MD [facility] [place] [address] Scheduled Procedures Name Priority Associated Diagnoses Date/Ti [...] AM EDT) 11/10/2023 7:44 PM EDT Narrative JUAN MIGUEL - 11/10/2023 7:44 PM EDT This exam is auto-finalizing. It's purpose is for storage only. Val Bautista APRN [employer] FILM LIBRARY ORD ERABLES [place], [place] documented in this encounter Visit Diagnoses Not on filedocumented in this encounter Care Teams Strategic Account Director Relationship Specialty Start Date End Date Val Bautista APRN [address] [place] [address] PCP - General Family Medicine 11/10/23 documented as of this encounter
--- OUTSIDE RECORDS SUMMARY | 2024-04-21 13:02 | XMS_ITS | Encounter Summary ---
Author Organization [facility] Address [address] [place] [address] Care Team Providers Care Master Scheduler Name Role Phone Unknown, Provider MD Primary Care Provider Unava ilable None, Provider Primary Care Provider Unavailabl e Unknown, Provider MD Unavailable Unavailable Encounter Details Date Type Department Care Team (Late st Contact Info) Description 05/15/2022 Lab Requisition [facility] Pathology & Laboratory Medicine - [address] [address] Rolando Michael, [address] [place] [address] [place] [phone] Neoplasm of unspecified behavior of bone, soft [...] management options, if applicable. 05/19/2022 13:[address] [facility] Final Diagnosis A. SKIN OF HELIX, LEFT MID, SHAVE BIOPSY: - Reactive epidermal hyperplasia with hyperkeratosis and parakeratosis. See comment. B. SKIN OF CHEEK, LEFT, SHAVE BIOPSY: - Basal cell carcinoma, nodular type (pigmented). - Basal cell carcinoma present at deep tissue edge. 05/19/2022 13:22 [facility] Diagnosis Comment Numerous sections of the biopsy from ? left helix? (A) were reviewed. 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 There is no evidence of malignancy on either the original or additional deeper sections. 05/19/2022 13:22 [facility] Attestation By the signature below, the attending physician certifies that they have 1) personally conducted a gross and/or microscopic examination of the described specimen(s), and/or personally interpreted the results of laboratory testing of the described specimen(s), and 2) personally rendered or confirmed the above diagnosis. 05/19/2022 13:22 [facility] at 1322 Microscopic Description A. 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 05/19/2022 13:22 [facility] Clinical History A. Bleeding skin neoplasm; B. Ulcerated skin lesion; clinical diagnosis code: D49.2 05/19/2022 13:22 [facility] Gross Description A. Received in [...] KATHRYN LASSITER(ASCP) 05/18/2022 7:25 05/19/2022 13:[address] [facility] Performing Lab [facility] 05/19/2022 13:[address] [facility] Scanned Images 05/19/2022 13:[address] [facility] Tissue TISSUE SPECIMEN FROM SKIN / Unknown 05/15/2022 8:45 EST 05/15/2022 21:15 EST Tissue specimen (specimen) SPECIMEN FROM SKIN / Unknown 05/15/2022 8:45 EST 05/15/2022 21:15 EST Rolando PERALTA PATHOLOGY ORDERABLES Final Result [facility] [address] [place] [address] documented in this encounter Visit Diagnoses Diagnosis Neoplasm of unspecified behavior of bone, soft tissue, and skin documented in this encounter Care Teams Master Scheduler Relationship Specialty Start Date End Date Unknown, Provider, PCP - General 04/29/22 11/23/22 None, Provider PCP - General 11/24/22 Unknown, ProviderMD 11/24/22 documented as of this encounter
--- OUTSIDE RECORDS SUMMARY | 2024-04-21 13:02 | XMS_ITS | Encounter Summary ---
Author Organization [facility] Address [facility] [place] [address] Care Team Providers Care Magnetic Testing Technician Name Role Phone Val Bautista APRN Primary Care Provider [phone] Reason for Referral * Diagnostic Test (Routine) - New Request Specialty Diagnoses / Procedures Referred By Marcelo mcnulty Referred To Contact Radiology Diagnoses Brain mass Procedures MRI Brain wwo Contrast (Generic) Randy Mohan MD [facility] [place] [address] Referral ID Status Reason Start Date Expiration Date Visits Requested Visits Authorized [id number] New Request Specialty Service Requested 12/01/2023 05/30/2025 1 1 Reason for Visit * Consultation (Urgent) - Authorized Specialty Diagnoses / Procedures Referred By Marcelo mcnulty Referred To Contact Neurosurgery Diagnoses Disorder of brain, unspecified Val Bautista APRN [address] [place] [address] [facility] [address] [place] [phone] Referral ID Status Reason Start Date Expiration Date Visits Requested Visits Authorized [id number] Authorized Consult, Test & Treat PCP Updated and/or Approved 11/10/2023 11/09/2024 6 6 Encounter Details Date Type Department Care Team (Late st Contact Info) Description 11/18/2023 11:20 AM EDT [place] [address] Randy Mohan MD [facility] [place] [address] Brain mass Social History Tobacco [...] Mohan MD - 11/18/2023 11:20 AM EDT [facility] NEUROSURGICAL ONCOLOGY DATE: 11/18/2023 NAME: Keesha [...] reviewed and are up to date in [facility]. No significant cardiac disease including hypertension, arrhythmias, CAD, or AR. No pulmonary disease including COPD or asthma. No hepatic, renal, or endocrine dysfunction. No anticoagulation or antiplatelet medications. No h/o thromboses or known complications from general anesthesia. No tobacco use. She was joined in the appointment with a friend. EXAM: Vitals Flowsheet Row [place]2023 [place] [facility] [place] 63.2 kg (139 lb 6.4 oz) [...] Description 12/08/2059 Hospital Encounter [place] [address] Randy Mohan MD [facility] [place] [address] Scheduled Orders Name Type Priority Associated Diagnoses [...] brain documented in this encounter Care Teams Magnetic Testing Technician Relationship Specialty Start Date End Date Val Bautista APRN [address] [place] [address] PCP - General Family Medicine 11/10/23 documented as of this encounter
--- OUTSIDE RECORDS SUMMARY | 2024-04-21 13:02 | XMS_ITS | Clinical Summary ---
Author Organization [facility] Address [address] [place] [address] Care Team Providers Care Medical Data Analyst Name Role Phone None, Provider Primary Care [...] Last Done Comments Hepatitis C Screen 1960 COVID-19 Vaccine (2023-25 season) 2023 RSV Immunization ( o r 60+ Years) (1 - 1-dose 75+ series) [address] [place] [address] ANTHEM ANTHEM Care Teams Medical Data Analyst Relationship Specialty Start Date End Date None, Provider PCP - General 11/24/22 Unknown, Provider, 11/24/22
--- OUTSIDE RECORDS SUMMARY | 2024-04-21 13:02 | XMS_ITS | Encounter Summary ---
Author Organization [facility] [place] [address] Care Team Providers Care Metal Tube Cutter Name Role Phone Juan Carlos Maldonado MD Primary Care Provider [phone] Encounter Details Date Type Department Care Team (Late st Contact Info) Description 10/15/2023 3:30 PM EDT Telehealth notes only Tele[facility] [place] [address] Telehealth, Neurology None Social History Tobacco Use Types Packs/Day Years Used Date Smoking Tobacco: Never Assessed Sex and Gender Information Value Date Recorded Sex Assigned at Not on file Gender Identity Not on file Sexual Orientation Not on file documented as of this encounter Miscellaneous Notes * Consult Note - Leonardo Martin MD - 10/15/2023 3:30 PM EDT [facility] TELENEUROLOGY EMERGENT TELENEUROLOGY CONSULT NOTE Date 10/15/23 Patient: Keesha Blanca : 1960 Gender: female VISIT Requesting Location: [facility] Requesting Physician: Dr. Stewart Diagnosis/Reason for Consult: [...] then discharged in stable Leonardo Martin MD [facility] TeleNeurology documented in this encounter Plan of Treatment Upcoming Encounters Date Type Department Care Team (Late st Contact Info) Description 12/08/2059 Hospital Encounter [place] [address] Randy Mohan MD [facility] [place] [address] Scheduled Procedures Name Priority Associated Diagnoses Date/Ti [...] on filedocumented in this encounter Care Teams Metal Tube Cutter Relationship Specialty Start Date End Date Juan Carlos Maldonado MD [address] [place] [address] PCP - General Family Medicine 11/20/16 11/09/23 documented as of this encounter
--- OUTSIDE RECORDS SUMMARY | 2024-04-21 13:02 | XMS_ITS | Encounter Summary ---
Author Organization [facility] [place] [address] Care Team Providers Care Technical Inspector Name Role Phone Val Bautista APRN Primary Care Provider [phone] Encounter Details Date Type Department Care Team (Late st Contact Info) Description 10/15/2023 Interpretation Only Radiology Library at [facility] [place] [address] Unknown None Social History Tobacco Use Types [...] Description 12/08/2059 Hospital Encounter [place] [phone] Randy Mohan MD [facility] [place] [address] Scheduled Procedures Name Priority Associated Diagnoses Date/Ti [...] PM EDT) 11/11/2023 6:19 AM EDT Narrative JUAN MIGUEL - 11/11/2023 6:19 AM EDT This exam is auto-finalizing. It's purpose is for storage only. Unknown IMG FILM LIBRARY ORD ERABLES Performing Organization Address City/State/[facility] Co de Phone Number [place], [place] documented in this encounter Visit Diagnoses Not on filedocumented in this encounter Care Teams Technical Inspector Relationship Specialty Start Date End Date Val Bautista APRN [address] [place] [address] PCP - General Family Medicine 11/10/23 documented as of this encounter
--- OUTSIDE RECORDS SUMMARY | 2024-04-21 13:02 | XMS_ITS | Encounter Summary ---
Author Organization [facility] Address [facility] [place] [address] Care Team Providers Care Crown Assembly Machine Set Up Mechanic Name Role Phone Juan Carlos Maldonado MD Primary Care Provider Encounter Details Date Type Department Care Team (Late st Contact Info) Description 11/08/2023 8:40 AM EDT Ancillary Procedure Radiology Library at [facility] [place] [phone] Val Bautista APRN [address] [place] [address] Social History Tobacco Use Types Packs/Day Years Used Date Smoking Tobacco: Never Assessed Sex and Gender Information Value Date Recorded Sex Assigned at Not on file Gender Identity Not on file Sexual Orientation Not on file documented as of this encounter Plan of Treatment Upcoming Encounters Date Type Department Care Team (Late st Contact Info) Description 12/08/2059 Hospital Encounter [place] [phone] Randy Mohan MD [facility] [address] Scheduled Procedures Name Priority Associated Diagnoses Date/Ti [...] AM EDT) 11/10/2023 7:44 PM EDT Narrative [facility] - 11/10/2023 7:44 PM EDT This exam is auto-finalizing. It's purpose is for storage only. Val Bautista APRN IMG FILM LIBRARY ORD ERABLES [place], [place] documented in this encounter Visit Diagnoses Not on filedocumented in this encounter Care Teams Crown Assembly Machine Set Up Mechanic Relationship Specialty Start Date End Date Juan Carlos Maldonado MD [address] [place] [address] PCP - General Family Medicine 11/20/16 11/09/23 documented as of this encounter
--- OUTSIDE RECORDS SUMMARY | 2024-04-21 13:02 | XMS_ITS | Encounter Summary ---
Author Organization [facility] Address [facility] [place] [address] Care Team Providers Care Sales Agent Name Role Phone Val Bautista APRN Primary Care Provider [phone] Reason for Referral * Diagnostic Test (Routine) - New Request Specialty Diagnoses / Procedures Referred By Marcelo mcnulty Referred To Contact Radiology Diagnoses Brain mass Procedures MRI Brain wwo Contrast (CSI Intra-op) Randy Mohan MD [facility] [place] [address] Referral ID Status Reason Start Date Expiration Date Visits Requested Visits Authorized [id number] New Request Specialty Service Requested 04/04/2024 10/02/2025 1 1 Encounter Details Date Type Department Care Team (Late st Contact Info) Description 04/04/2024 Orders [place] [address] Randy Mohan MD [facility] [place] [address] Brain mass Social History Tobacco Use Types [...] Description 12/08/2059 Hospital Encounter [place] [address] Randy Mohan MD [facility] [place] [address] Scheduled Orders Name Type Priority Associated Diagnoses Orde r Schedule MRI Brain wwo Contrast (CSI Intra-op) Imaging Routine Brain mass Expected: 04/04/2024, Expires: 10/04/2024 Scheduled Procedures Name Priority Associated Diagnoses Date/Ti [...] brain documented in this encounter Care Teams Sales Agent Relationship Specialty Start Date End Date Val Bautista APRN [address] [place] [address] PCP - General Family Medicine 11/10/23 documented as of this encounter
--- OUTSIDE RECORDS SUMMARY | 2024-04-21 13:02 | XMS_ITS | Encounter Summary ---
Author Organization [facility] [place] [address] Care Team Providers Care Newspaper Library Manager Name Role Phone Val Bautista APRN Primary Care Provider [phone] Reason for Referral * Consultation (Urgent) - Authorized Specialty Diagnoses / Procedures Referred By Marcelo mcnulty Referred To Contact Neurosurgery Diagnoses Disorder of brain, unspecified Val Bautista APRN [address] [place] [address] [facility] [address] [place] [phone] Referral ID Status Reason Start Date Expiration Date Visits Requested Visits Authorized [id number] Authorized Consult, Test & Treat PCP Updated and/or Approved 11/10/2023 11/09/2024 6 6 Encounter Details Date Type Department Care Team (Latest Contact Info) Description 11/10/2023 Transcribe Orders eDH Incoming Referrals [phone] Val Bautista APRN [address] [place] [address] Disorder of brain, unspecified Social [...] Description 12/08/2059 Hospital Encounter [place] [address] Randy Mohan MD [facility] [place] [address] Scheduled Procedures Name Priority Associated Diagnoses Date/Ti me @[email or web address], EXC. TUMOR, IN FRATENTORIAL OR POST. FOSSA, NOT MENINGIOMA (WRVU 39.89) Brain mass STEREOTACTIC COMPUTER-ASSTD NAVIGATIONAL CRANIAL INTRADURAL (WRVU 3.75) Brain mass MICROSCOPE USE (WRVU 3.46) Brain mass ULTRASONIC GUIDANCE, INTRAOP (WRVU 1.2) Brain mass MODIFIER SYNAPTIVE Brain mass MODIFIER NEUROMONITORING Brain mass MODIFIER,STEALTH 3 W/O KINEV O,CRANI/SPINE ONLY Brain mass Scheduled Referrals Name Type Priority Associated Diagnoses Orde r Schedule Referral to Neurosurgery Outpatient Referral Urgent Disorder of brain, unspecified Ordered: 11/10/2023 documented as of this encounter Visit Diagnoses Diagnosis Disorder of brain, unspecified documented in this encounter Care Teams Newspaper Library Manager Relationship Specialty Start Date End Date Val Bautista APRN [address] [place] [address] PCP - General Family Medicine 11/10/23 documented as of this encounter
--- OUTSIDE RECORDS SUMMARY | 2024-04-21 13:02 | XMS_ITS | Encounter Summary ---
Author Organization [facility] [place] [address] Care Team Providers Care Lead Former Name Role Phone Val Bautista APRN Primary Care Provider [phone] Encounter Details Date Type Department Care Team (Late st Contact Info) Description 10/15/2023 Interpretation Only Radiology Library at [facility] [place] [place] [address] Val Bautista APRN [address] [place], [place] [address] Social History Tobacco Use Types Packs/Day Years Used Date Smoking Tobacco: Never Assessed Sex and Gender Information Value Date Recorded Sex Assigned at Not on file Gender Identity Not on file Sexual Orientation Not on file documented as of this encounter Plan of Treatment Upcoming Encounters Date Type Department Care Team (Late st Contact Info) Description 12/08/2059 Hospital Encounter [place] [phone] Randy Mohan MD [facility] [place] [address] Scheduled Procedures Name Priority Associated Diagnoses Date/Ti [...] PM EDT) 11/10/2023 7:44 PM EDT Narrative JUAN MIGUEL - 11/10/2023 7:44 PM EDT This exam is auto-finalizing. It's purpose is for storage only. Val Bautista APRN IMElinor FILM LIBRARY ORD ERABLES [place], [place] documented in this encounter Visit Diagnoses Not on filedocumented in this encounter Care Teams Lead Former Relationship Specialty Start Date End Date Val Bautista APRN [address] [place] [address] PCP - General Family Medicine 11/10/23 documented as of this encounter
--- OUTSIDE RECORDS SUMMARY | 2024-04-21 13:02 | XMS_ITS | Encounter Summary ---
Author Organization [facility] [place] [address] Care Team Providers Care Oral And Maxillofacial Surgery Name Role Phone Juan Carlos Maldonado MD Primary Care Provider Encounter Details Date Type Department Care Team (Late st Contact Info) Description 10/15/2023 6:55 PM EDT Ancillary Procedure Radiology Library at [facility] [place] [phone] Unknown None Social History Tobacco Use Types [...] Description 12/08/2059 Hospital Encounter [place] [address] Randy Mohan MD [facility] [place] [address] Scheduled Procedures Name Priority Associated Diagnoses Date/Ti [...] PM EDT) 11/11/2023 6:19 AM EDT Narrative RAD - 11/11/2023 6:19 AM EDT This exam is auto-finalizing. It's purpose is for storage only. Unknown IMG FILM LIBRARY ORD ERABLES Performing Organization Address City/State/[facility] Co de Phone Number [place], [place] documented in this encounter Visit Diagnoses Not on filedocumented in this encounter Care Teams Oral And Maxillofacial Surgery Relationship Specialty Start Date End Date Juan Carlos Maldonado MD [address] [place] [id number] PCP - General Family Medicine 11/20/16 11/09/23 documented as of this encounter
--- OUTSIDE RECORDS SUMMARY | 2024-04-21 13:02 | XMS_ITS | Encounter Summary ---
Author Organization [facility] [place] [address] Care Team Providers Care Wiener Packer Name Role Phone Juan Carlos Maldonado MD Primary Care Provider [phone] Reason for Referral * Consultation (Routine) - Closed Specialty Diagnoses / Procedures Referred By Marcelo mcnulty Referred To Contact Plastic Surgery Diagnoses S/P silicone breast implant Val Bautista APRN [address] [place] [address] [facility] Plastic Surg [address] [place] [phone] Referral ID Status Reason Start Date Expiration Date V isits Requested Visits Authorized [id number] Closed Consult, Test & Treat PCP Updated and/or Approved 01/11/2023 01/11/2024 12 12 Encounter Details Date Type Department Care Team (Latest Contact Info) Description 01/11/2023 Transcribe Orders eDH Incoming Referrals [phone] Val Bautista APRN [address] [place], [place] [phone] S/P silicone breast implant Social History Tobacco [...] Description 12/08/2059 Hospital Encounter Main [place] [address] Randy Mohan MD [facility] [place] [address] Scheduled Procedures Name Priority Associated Diagnoses Date/Ti [...] means documented in this encounter Care Teams Wiener Packer Relationship Specialty Start Date End Date Juan Carlos Maldonado MD [address] [place] [address] PCP - General Family Medicine 11/20/16 11/09/23 documented as of this encounter
--- OUTSIDE RECORDS SUMMARY | 2024-04-21 13:02 | XMS_ITS | Encounter Summary ---
Author Organization [facility] [place] [address] Care Team Providers Care Field Broomer Name Role Phone Val Bautista APRN Primary Care Provider Encounter Details Date Type Department Care Team (Late st Contact Info) Description 11/23/2023 [place] [address] Ryann Martin, RN Social History Tobacco Use [...] 1:38 PM EDT Copied from [facility] #[id number]. Topic: Specialty Dept CRMs - Generic Call [...] Description 12/08/2059 Hospital Encounter [place] [phone] Randy Mohan MD [facility] [place] [address] Scheduled Procedures Name Priority Associated Diagnoses Date/Ti [...] on filedocumented in this encounter Care Teams Field Broomer Relationship Specialty Start Date End Date Val Bautista APRN [address] [place] [address] PCP - General Family Medicine 11/10/23 documented as of this encounter
--- OUTSIDE RECORDS SUMMARY | 2024-04-21 13:02 | XMS_ITS | Encounter Summary ---
Author Organization [facility] Address [address] [place] [address] Care Team Providers Care Office Services Clerk Name Role Phone Unknown, Provider MD Primary Care Provider Unava ilable None, Provider Primary Care Provider Unavailabl e Unknown, Provider MD Unavailable Unavailable Encounter Details Date Type Department Care Team (Late st Contact Info) Description 08/21/2022 Lab Requisition [facility] - Main [place] [address] [place] [address] Prashant Aldridge, [address] [address] Basal cell carcinoma of skin, unspecified Social [...] management options, if applicable. 08/25/2022 15:18 EDT [facility] Final Diagnosis A. SKIN OF CHEEK, LEFT, EXCISION FOR FROZEN SECTION: - Residual basal cell carcinoma, nodular type; peripheral and deep margins negative. See comment. - Epidermal reparative change and dermal scar, consistent with prior biopsy site. - Background dermal solar elastosis. 08/25/2022 15:18 [facility] Diagnosis Comment Correlation is made with the prior biopsy ([id number]). 08/25/2022 15:18 [facility] Attestation By the signature below, the attending physician certifies that they have 1) personally conducted a gross and/or microscopic examination of the described specimen(s), and/or personally interpreted the results of laboratory testing of the described specimen(s), and 2) personally rendered or confirmed the above diagnosis. 08/25/2022 15:18 [facility] at 1518 Intraoperative Consultation A. [...] 08/20/22 (Frozen section performed and evaluated at [facility]) 08/25/2022 15:18 [facility] Clinical History left cheek BCC 07/29 15:18 [facility] Gross Description A. Received fresh [...] portion of FSA1 control. 08/25/2022 15:18 EDT [facility] Performing Lab [facility] 08/25/2022 15:18 EDT [facility] Scanned Images 08/25/2022 15:18 EDT [facility] Tissue SPECIMEN FROM SKIN / Unknown 08/20/2022 9:20 EDT 08/21/2022 9:33 EDT us Prashant Aldridge DO PATHOLOGY ORDERABLES Fi nal Result [facility] [address] [place] [address] documented in this encounter Visit Diagnoses Diagnosis Basal cell carcinoma of skin, unspecified documented in this encounter Care Teams Office Services Clerk Relationship Specialty Start Date End Date Unknown, Provider, PCP - General 04/29/22 11/23/22 None, Provider PCP - General 11/24/22 Unknown, ProviderMD 11/24/22 documented as of this encounter
--- OUTSIDE RECORDS SUMMARY | 2024-04-21 13:02 | XMS_ITS | Encounter Summary ---
Author Organization [facility] Address [facility] [place] [address] Care Team Providers Care Skiver Box Toe Name Role Phone Juan Carlos Maldonado MD Primary Care Provider [phone] Encounter Details Date Type Department Care Team (Late st Contact Info) Description 02/05/2010 Interpretation Only Radiology [address] [place] [address] [place] [phone] Unknown None Social History Tobacco Use Types [...] Description 12/08/2059 Hospital Encounter [place] [phone] Randy Mohan MD [facility] [address] Scheduled Procedures Name Priority Associated Diagnoses Date/Ti [...] 3:06 PM EST APD Historical Result Principal Spa Manager/Esthetician: ??VERO ??ARUNA RIGHT HAND - THREE VIEWS: [...] of the hand. Vero Valdovinos MD KG/ma [id number] CC: Procedure Note Unknown - 09/26/2018 APD Historical Result Principal Spa Manager/Esthetician: VERO VALDOVINOS RIGHT HAND - THREE VIEWS: [...] of the hand. Vero Valdovinos MD KG/ma [id number] CC: Unknown IMG DX ORDERABLES documented in this encounter Visit Diagnoses Not on filedocumented in this encounter Care Teams Skiver Box Toe Relationship Specialty Start Date End Date Juan Carlos Maldonado MD [address] [place] [address] PCP - General Family Medicine 11/20/16 11/09/23 documented as of this encounter
--- OUTSIDE RECORDS SUMMARY | 2024-04-21 13:02 | XMS_ITS | Clinical Summary ---
Author Organization [facility] [place] [address] Care Team Providers Care Stenotype Machine Operator Name Role Phone Val Bautista APRN Primary Care Provider [phone] Allergies Active Allergy Reactions Criticality Noted Date Comments Erythromycin Base Low CIS - Nausea/Vomiting Medications Medication Sig Dispensed Refills Start Date End Date Status ibuprofen (ADVIL) 200 mg tablet 01/08/2009 Active Encounters Date Type Department Care Team Description 04/18/2024 [place] [phone] Ruthie Tay RN Appointment 04/04/2024 Orders [place] [address] Randy Mohan MD Brain mass 02/07/2024 Orders [place] [address] Zahira Plaza RN Brain mass from Last 3 Months Social History Tobacco [...] Description 12/08/2059 Hospital Encounter [place] [address] Randy Mohan MD [facility] [place] [address] Scheduled Procedures Name Priority Associated Diagnoses Date/Ti me @CRANIECTOMY, EXC. TUMOR, IN FRATENTORIAL OR POST. FOSSA, NOT MENINGIOMA (WRVU 39.89) Brain mass STEREOTACTIC COMPUTER-ASSTD NAVIGATIONAL CRANIAL INTRADURAL (WRVU 3.75) Brain mass MICROSCOPE USE (WRVU 3.46) Brain mass ULTRASONIC GUIDANCE, INTRAOP (WRVU 1.2) Brain mass MODIFIER SYNAPTIVE Brain mass MODIFIER NEUROMONITORING Brain mass MODIFIER,STEALTH 3 W/O KINEV O,CRANI/SPINE ONLY Brain mass Health Maintenance Due Date Last Done Comments CT Colonography 1959 Colonoscopy 1959 Colorectal Cancer Screening 1959 FIT DNA 1959 FIT 1959 Sigmoidoscopy (10 year) with FIT yearly 1959 Sigmoidoscopy 1959 HIV screen 1977 Hepatitis C Screening 1977 Tetanus/Diphtheria/Pertussis Vaccines (1 - Tdap) 02/19 HPV test 1989 PAP Smear 1989 Breast Cancer Share Decision Needed 1999 Breast Cancer screening 1999 Pneumoccocal Vaccine: 50+ (1 of 1 - PCV) 2009 Zoster vaccine (1 of 2) 2009 Advance Directive 2014 Covid-19 Vaccine (1 - season) 2023 Influenza (Flu) vaccine (1 o f 1 - Influenza standard series) 11/28/2023 Bone Density Scan 02/20/2024 Care Teams Stenotype Machine Operator Relationship Specialty Start Date End Date Val Bautista APRN [address] [place] [address] PCP - General Family Medicine 11/10/23
--- OUTSIDE RECORDS SUMMARY | 2024-04-21 13:02 | XMS_ITS | Encounter Summary ---
Author Organization [facility] Address [facility] [place] [address] Care Team Providers Care Caddy Name Role Phone Juan Carlos Maldonado MD Primary Care Provider Encounter Details Date Type Department Care Team (Late st Contact Info) Description 10/15/2023 1:15 PM EDT Ancillary Procedure Radiology Library at [facility] [place] [phone] Val Bautista APRN [address] [place] [address] Social History Tobacco Use Types Packs/Day Years Used Date Smoking Tobacco: Never Assessed Sex and Gender Information Value Date Recorded Sex Assigned at Not on file Gender Identity Not on file Sexual Orientation Not on file documented as of this encounter Plan of Treatment Upcoming Encounters Date Type Department Care Team (Late st Contact Info) Description 12/08/2059 Hospital Encounter [place] [phone] Randy Mohan MD [facility] [place] [address] Scheduled Procedures Name Priority Associated Diagnoses Date/Ti [...] PM EDT) 11/10/2023 7:44 PM EDT Narrative [facility] - 11/10/2023 7:44 PM EDT This exam is auto-finalizing. It's purpose is for storage only. Val Bautista APRN IMG FILM LIBRARY ORD ERABLES [place], [place] documented in this encounter Visit Diagnoses Not on filedocumented in this encounter Care Teams Caddy Relationship Specialty Start Date End Date Juan Carlos Maldonado MD [address] [place] [address] PCP - General Family Medicine 11/20/16 11/09/23 documented as of this encounter
[2024-04-24 12:03] LABS: Chlamydia Result Negative (Negative); GC Result Negative (Negative)
== END 2024-04-21 12:53 | disposition home or self-care (01) ==
LOC: NCHCN 12:52
PROVIDERS: PCP Nurse Practitioner Family; Visit Provider Nurse Practitioner Family
DX: Z00.00 Encounter for general adult medical examination without abnormal findings (principal); Z12.4 Encounter for screening for malignant neoplasm of cervix; Z01.419 Encounter for gynecological examination (general) (routine) without abnormal findings
CPT/HCPCS: 87491; 87591; 88142; 87624

== ENCOUNTER 2024-06-16 15:19 | Outpatient (REF) | payer BC, SELFPAY ==
[2024-06-16 15:01] LABS: Abs Immature Grans 0.01 10^3/uL (0.0-0.06); Absolute Basophil Count 0.03 10^3/uL (0.0-0.2); Absolute Eosinophil Count 0.05 10^3/uL (0.0-0.7); Absolute Lymphocyte Count 1.46 10^3/uL (1.2-3.4); Absolute Monocyte Count 0.45 10^3/uL (0.1-0.8); Absolute Neutrophil Count 3.48 10^3/uL (1.2-6.7); Basophils % 0.5 %; Eosinophils % 0.9 %; HCT 43.7 % (36.0-46.0); HGB 14.1 g/dL (11.2-15.7); Immature Grans % 0.2 %; Lymphocytes % 26.6 %; MCHC 32.3 % (32.0-36.0); MCV 84 fL (80-95); MPV 9.6 fL (8.0-11.0); Monocytes % 8.2 %; Neutrophils % 63.6 %; Platelet Count 229 10^3/uL (130-400); RBC 5.22 10^6/uL (3.93-5.22); RDW 13.2 % (11.7-14.6); RDW-SD 40.8 fL; WBC 5.48 10^3/uL (4.4-10.8)
[2024-06-16 15:22] LABS: ALT 39 U/L (14-59); AST 37 U/L (15-37); Albumin 4.3 g/dL (3.4-5.0); Alkaline Phosphatase 87 U/L (46-116); Anion Gap 6.5 mmol/L (3-11); BUN 15 mg/dL (7-18); Bilirubin, Total 1.3 mg/dL (0.2-1.0); CO2 31.5 mmol/L (21.0-32.0); CREATININE 0.8 mg/dL (0.55-1.02); Calcium 9.8 mg/dL (8.5-10.1); Chloride 105 mmol/L (98-107); Estimated GFR 81.72 (mL/min/1.73m2); Glucose 94 mg/dL (74-106); Potassium 4.1 mmol/L (3.5-5.1); Sodium 143 mmol/L (136-145); Total Protein 7.9 g/dL (6.4-8.2)
[2024-06-19 10:41] LABS: IgA 203 mg/dL (85-499); IgG 1372 mg/dL (610-1616); IgM 153 mg/dL (35-242); Kappa Free Light Chain 2.61 mg/dL (0.33-1.94); Lambda Free Light Chain 1.22 mg/dL (0.57-2.63)
[2024-06-20 15:45] LABS: Albumin 59.1 % (55.8-66.1); Albumin g/dL 4.5 g/dL (3.6-5.2); Comment (See Note); Monoclonal Spike g/dL 0.2 g/dL (None Seen); Total Protein 7.6 g/dL (6.3-8.2)
[2024-06-20 16:02] LABS: Immunotyping, Serum (See Note)
== END 2024-06-16 15:20 | disposition home or self-care (01) ==
LOC: NCHCN 15:19
PROVIDERS: PCP Nurse Practitioner Family; Visit Provider Nurse Practitioner Family
DX: M89.9 Disorder of bone, unspecified (principal)
CPT/HCPCS: 80053; 82784; 83883; 84165; 85025; 86320

== ENCOUNTER 2024-12-15 16:09 | Outpatient (REF) | payer SELFPAY ==
[2024-12-15 21:11] LABS: HCT 39.1 % (36.0-46.0); HGB 12.9 g/dL (11.2-15.7); MCH 26.8 pg (27.0-33.0); MCHC 33.0 % (32.0-36.0); MCV 81 fL (80-95); MPV 9.5 fL (8.0-11.0); Platelet Count 191 10^3/uL (130-400); RBC 4.81 10^6/uL (3.93-5.22); RDW 12.6 % (11.7-14.6); RDW-SD 37.4 fL; WBC 5.20 10^3/uL (4.4-10.8)
[2024-12-15 21:25] LABS: ALT 22 U/L (14-59); AST 23 U/L (15-37); Albumin 4.2 g/dL (3.4-5.0); Alkaline Phosphatase 66 U/L (46-116); Anion Gap 7.1 mmol/L (3-11); BUN 15 mg/dL (7-18); Bilirubin, Total 1.7 mg/dL (0.2-1.0); CO2 30.9 mmol/L (21.0-32.0); Calcium 9.5 mg/dL (8.5-10.1); Chloride 100 mmol/L (98-107); Estimated GFR 81.72 (mL/min/1.73m2); Glucose 96 mg/dL (74-106); Magnesium 2.0 mg/dL (1.8-2.4); Potassium 4.3 mmol/L (3.5-5.1); Sodium 138 mmol/L (136-145); Total Protein 7.4 g/dL (6.4-8.2)
== END 2024-12-15 16:10 | disposition home or self-care (01) ==
LOC: NCHCN 16:09
PROVIDERS: PCP Nurse Practitioner Family; Visit Provider Nurse Practitioner Family
DX: I49.8 Other specified cardiac arrhythmias (principal)
CPT/HCPCS: 80053; 85027; 83735

== ENCOUNTER 2024-12-18 07:34 | Outpatient (CLI) | payer BC, SELFPAY ==
--- NOTE | 2024-12-18 | DI.RAD_ITS ---
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 TECHNIQUE: 2D digital imaging was performed. COMPARISON: No exams were available for comparison FINDINGS: Bones: No fracture is present. No bony destructive lesion is seen. There are severe degenerative disc changes at L4-5 and L5-S1, with prominent endplate osteophytes. SI joints: Some narrowing of the right SI joint with spurring and sclerosis superiorly. Left SI joint is unremarkable. Soft Tissue: Normal. IMPRESSION: Some narrowing at the superior SI joint with mild spurring. Severe degenerative disc changes L4-5 and L5-S1. DATA REPOSITORY: RADIATION DOSE DELIVERED:
== END 2024-12-18 07:54 ==
PROVIDERS: PCP Nurse Practitioner Family; Visit Provider Nurse Practitioner Family
DX: M54.31 Sciatica, right side (principal); M51.360 Other intervertebral disc degeneration, lumbar region with discogenic back pain only
CPT/HCPCS: 72202

== ENCOUNTER 2024-12-25 17:34 | Outpatient (REF) | payer SELFPAY ==
[2024-12-27 09:51] LABS: Kappa Free Light Chain 1.55 mg/dL (0.33-1.94); Lambda Free Light Chain 1.13 mg/dL (0.57-2.63)
[2024-12-28 16:01] LABS: Albumin 60.2 % (55.8-66.1); Albumin g/dL 4.2 g/dL (3.6-5.2); Alpha 1 g/dL 0.20 g/dL (0.15-0.40); Alpha 2 g/dL 0.60 g/dL (0.50-1.00); Beta g/dL 0.70 g/dL (0.60-1.20); Gamma g/dL 1.20 g/dL (0.60-1.60); Total Protein 7.0 g/dL (6.3-8.2)
== END 2024-12-25 17:35 | disposition home or self-care (01) ==
LOC: LBN 17:34
PROVIDERS: PCP Nurse Practitioner Family; Visit Provider Internal Medicine Hematology & Oncology
DX: D47.2 Monoclonal gammopathy (principal)
CPT/HCPCS: 82784; 83883; 84165; 86320

== ENCOUNTER 2025-03-27 10:30 | Outpatient (CLI) | payer MEDICARE, SELFPAY ==
[2025-03-27 14:52] LABS: Abs Immature Grans 0.02 10^3/uL (0.0-0.06); HCT 39.4 % (36.0-46.0); HGB 12.7 g/dL (11.2-15.7); Immature Grans % 0.4 %; MCH 26.7 pg (27.0-33.0); MCHC 32.2 % (32.0-36.0); MCV 83 fL (80-95); MPV 9.3 fL (8.0-11.0); Platelet Count 205 10^3/uL (130-400); RBC 4.76 10^6/uL (3.93-5.22); RDW 12.9 % (11.7-14.6); RDW-SD 38.8 fL; WBC 4.50 10^3/uL (4.4-10.8)
[2025-03-27 15:05] LABS: ALT 21 U/L (10-49); AST 31 U/L (<34); Albumin 4.6 g/dL (3.2-5.0); Alkaline Phosphatase 67 U/L (46-116); Anion Gap 8.4 mmol/L (3-11); BUN 15 mg/dL (9-23); Bilirubin, Total 1.4 mg/dL (0.2-1.2); CO2 29.6 mmol/L (20.0-31.0); Calcium 9.7 mg/dL (8.3-10.6); Chloride 104 mmol/L (98-107); Glucose 102 mg/dL (74-106); Potassium 4.1 mmol/L (3.5-5.1); Sodium 142 mmol/L (136-145); Total Protein 7.4 g/dL (5.7-8.2)
[2025-03-28 12:49] LABS: Kappa Free Light Chain 2.09 mg/dL (0.33-1.94); Lambda Free Light Chain 1.34 mg/dL (0.57-2.63)
[2025-03-28 15:30] LABS: Albumin 61.6 % (55.8-66.1); Albumin g/dL 4.6 g/dL (3.6-5.2); Alpha 1 g/dL 0.30 g/dL (0.15-0.40); Alpha 2 g/dL 0.60 g/dL (0.50-1.00); Beta g/dL 0.80 g/dL (0.60-1.20); Gamma g/dL 1.20 g/dL (0.60-1.60); Total Protein 7.5 g/dL (6.3-8.2)
== END 2025-03-27 10:31 | disposition home or self-care (01) ==
LOC: LBO 10:33 → LBN 14:45
PROVIDERS: PCP Nurse Practitioner Family; Visit Provider Nurse Practitioner Family
DX: D47.2 Monoclonal gammopathy (principal)
CPT/HCPCS: 80053; 82784; 83883; 84165; 85025; 86320